=== PATIENT | male | born 1945 | race Caucasian/White ===

== ENCOUNTER 2016-09-25 09:58 | Emergency (ER) | payer OTHER ==
[~2016-09-25] VITALS: Ht 193 cm; Wt 97.0 kg
[~2016-09-25 09:58] MED LIST: ALLO300T2 PO; ASPI81TA82 PO; ATOR40TA49 PO; CYAN1000P IM; D31000CA PO; FLUT50SP EACH NARE; LORA-474 PO; MAGN250T13 PO; TAMS0.4C67 PO
[2016-09-25 10:01] VITALS: BP 110/59; PULSE 61; RESP 17; TEMP 97.9; O2SAT 96
[2016-09-25] MEDS ORDERED: MONT10TA4 PO (10:24)
[2016-09-25] MEDS ORDERED: ZOLP10TA3 PO (10:24)
[2016-09-25] MEDS ORDERED: TRAZ100T6 PO (10:24)
[2016-09-25] MEDS ORDERED: DULO1CAP2 PO (10:24)
[2016-09-25] MEDS ORDERED: ATOR40TA16 PO (10:24)
[2016-09-25] MEDS ORDERED: LORA1TAB12 PO (10:24)
[2016-09-25] MEDS ORDERED: SODIUM CHLORIDE 0.9% FLUSH 10 ML FLUSH IVF PRN (10:45)
[2016-09-25] MEDS ORDERED: DIATRIZOATE MEGLUM/DIATRIZOATE SOD 9 ML CUP ONE (10:55)
[2016-09-25 11:07] LABS: AUTOMATED NEUTROPHIL # 3.9 TH/MM3 (1.8-7.7); BASOPHIL % 0.2 % (0.0-2.0); EOSINOPHIL % 0.2 % (0.0-4.0); HEMATOCRIT 44.9 % (39.0-51.0); LYMPH % 7.4 % (9.0-44.0); LYMPHOCYTE # 0.4 TH/MM3 (1.0-4.8); MEAN CELL VOLUME 93.1 FL (80.0-100.0); MEAN CORPUSCULAR HEMOGLOBIN 30.8 PG (27.0-34.0); MEAN CORPUSCULAR HGB CONC 33.1 % (32.0-36.0); MONO % 11.8 % (0.0-8.0); NEUT % 80.4 % (16.0-70.0); PLATELET COUNT 205 TH/MM3 (150-450); RED BLOOD COUNT 4.83 MIL/MM3 (4.50-5.90); RED CELL DISTRIBUTION WIDTH 12.5 % (11.6-17.2); WHITE BLOOD COUNT 4.9 TH/MM3 (4.0-11.0)
[2016-09-25 11:09] LABS: HEMO FLAGS DIFF FINAL
[2016-09-25 11:12] VITALS: BP 117/67; PULSE 85; RESP 18; O2SAT 97
[2016-09-25 11:14] LABS: CHLORIDE 101 MEQ/L (98-107); SODIUM (NA) 137 MEQ/L (136-145)
[2016-09-25 11:17] VITALS: BP 117/67; PULSE 82; RESP 18; O2SAT 98
[2016-09-25 11:18] LABS: ANION GAP 9 MEQ/L (5-15); BICARBONATE 27.3 MEQ/L (21.0-32.0); BLOOD UREA NITROGEN 12 MG/DL (7-18)
[2016-09-25 11:20] LABS: BLOOD, URINE TRACE (NEG); GLUCOSE,URINE NEG (NEG); KETONE, URINE NEG (NEG); NITRITE,URINE NEG (NEG)
[2016-09-25 11:21] LABS: ALT (GPT) 24 U/L (12-78); AST (GOT) 13 U/L (15-37); GLOMERULAR FILTRATION RATE 84 ML/MIN (>89)
[2016-09-25 11:22] LABS: TOTAL BILIRUBIN ADULT 0.9 MG/DL (0.2-1.0)
[2016-09-25 11:23] LABS: ALKALINE PHOSPHATASE 53 U/L (45-117)
[2016-09-25 11:40] LABS: METHOD OF COLLECTION VOIDED; MUCUS URINE MANY /lpf (OCC); URINE COLOR YELLOW (YELLW/STRAW)
[2016-09-25 11:41] LABS: BACTERIA, URINE RARE /hpf; RBC, URINE 0-3 /hpf (0-3); SQUAMOUS EPITHELIAL CELL URINE 0-2 /hpf (0-5); WBC, URINE 0-2 /hpf (0-5)
[2016-09-25 11:42] LABS: COMMENT (UR) CULT NOT INDICATED; CULTURE IF INDICATED CULT NOT INDICATED
[2016-09-25 12:30] VITALS: BP 129/75; PULSE 76; RESP 18; O2SAT 99
[2016-09-25] MEDS ORDERED: IOHEXOL 350 MG/ML 10 ML VIAL (for RAD DIAG) IV ONE (12:37)
[2016-09-25 12:47] VITALS: BP 137/69; PULSE 70; RESP 18; O2SAT 99
--- NOTE | 2016-09-25 12:59 | RADHPO ---
EXAM DATE/TIME: 09/25/2016 12:25 [facility] COMPARISON: No previous studies available for comparison. INDICATIONS : Thirty pound weight loss within one month. IV CONTRAST: 95 cc Omnipaque 350 (iohexol) IV ORAL CONTRAST: Prescribed oral contrast ingested. RADIATION DOSE: 18.19 CTDIvol (mGy) MEDICAL HISTORY : None SURGICAL HISTORY : None. ENCOUNTER: Initial ACUITY: 1 month PAIN SCALE: 0/10 LOCATION: Abdomen/pelvis TECHNIQUE: Volumetric scanning of the abdomen and pelvis was performed. Using automated exposure control and ad justment of the mA and/or kV according to patient size, radiation dose was kept as low as reasonably achievable to obtain optimal diagnostic quality images. FINDINGS: Lung bases are clear. Liver is free of focal defects. Spleen contains granulomas. Pancreas, adrena ls and kidneys are unremarkable. There is no ascites or adenopathy appreciated. Pelvic contents are unremarkable. CONCLUSION: 1. I do not see an etiology for the 30-pound weight loss. 2. There is collateralization from a supreme intercostal vein to the azygous vein. Bud Araujo MD FACR on September 25, 2016 at 12:42 Board Certified Radiologist. This report was verified electronically.
--- NOTE | 2016-09-25 13:04 | PD ---
HPI Chief Complaint: General Weakness Time Seen by Provider: 10:46 Travel History International Travel<30 days: No Contact w/Intl Traveler<30days: No Traveled to known affect area: No History of Present Illness HPI Patient is a 71-year-old male with history of restless leg syndrome/neuropathy and depression here with complaint of generalized fatigue/malaise, anorexia and weight loss. For the last month patient has felt poorly. Notes generalized fatigue, anorexia. He's had an unintentional 30 pound weight loss. He also notes fullness/discomfort in the upper abdomen, right slightly greater than left. No noted jaundice, nausea, change in stool habits. He denies any history of hepatobiliary pathology. No changes in medications. No nocturnal sweats, fevers or chills PFSH Past Medical History Depression: Yes Cardiovascular Problems: Yes (IDIOPATHIC NEUROPATHY BILAT LEGS) Musculoskeletal: Yes (RLS) Influenza Vaccination: Yes Past Surgical History Surgical History: No Previous Surgery Social History Alcohol Use: No Tobacco Use: No Substance Use: No Allergies-Medications (Allergen,Severity, Reaction): Coded Allergies: Sulfa (Verified Allergy, Intermediate, vomiting, 09/25/16) Reported Meds & Prescriptions Reported Meds & Active Scripts Active Reported Duloxetine DR (Duloxetine HCl) 30 Mg Capdr 30 Mg PO BID Montelukast (Montelukast Sodium) 10 Mg Tab 10 Mg PO HS Atorvastatin (Atorvastatin Calcium) 40 Mg Tab 40 Mg PO HS Lorazepam 1 Mg Tab 1 Mg PO Q8H PRN Zolpidem (Zolpidem Tartrate) 10 Mg Tab 10 Mg PO HS Trazodone (Trazodone HCl) 100 Mg Tablet 100 Mg PO HS Review of Systems Except as stated in HPI: all other systems reviewed are Neg Physical Exam Narrative GENERAL: Well-appearing male in no acute distress SKIN: Focused skin assessment warm/dry. HEAD: Normocephalic. EYES: No scleral icterus. No injection or drainage. ENT: No nasal bleeding or discharge. Mucous membranes pink and moist. NECK: Supple CARDIOVASCULAR: Regular rate and rhythm. No murmur appreciated. RESPIRATORY: No accessory muscle use. Clear to auscultation. Breath sounds equal bilaterally. GASTROINTESTINAL: Abdomen soft, mild upper abdominal tenderness to palpation in the epigastrium and right upper quadrant without rebound or guarding, no hepatosplenomegaly MUSCULOSKELETAL: normal gait NEUROLOGICAL: Awake and alert. Motor grossly within normal limits. Normal speech. PSYCHIATRIC: Appropriate mood and affect; insight and judgment normal. Data Data Last Documented VS Vital Signs Date Time Temp Pulse Resp B/P Pulse Ox O2 Delivery O2 Flow Rate FiO2 09/25/16 12:47 70 18 137/69 99 Room Air 09/25/16 10:01 97.9 Orders Electrocardiogram (09/25/16 10:39) Complete Blood Count With Diff (09/25/16 10:39) Urinalysis - C+S If Indicated (09/25/16 10:39) Ecg Monitoring (09/25/16 10:39) Iv Access Insert/Monitor (09/25/16 10:39) Oximetry (09/25/16 10:39) Sodium Chloride 0.9% Flush (Ns Flush) (09/25/16 10:45) Comprehensive Metabolic Panel (09/25/16 10:52) Lipase (09/25/16 10:52) Ct Abd/Pel W Iv Contrast(Rout) (09/25/16 10:52) Diatrizoate Liq ( Gastroview Liq) (09/25/16 10:55) Oral Contrast - Adult (09/25/16 11:09) Iohexol 350 Inj (Omnipaque 350 Inj) (09/25/16 12:37) Labs Laboratory Tests Test 09/25/16 09/25/16 11:00 11:10 White Blood Count 4.9 TH/MM3 Red Blood Count 4.83 MIL/MM3 Hemoglobin 14.9 GM/DL Hematocrit 44.9 % Mean Corpuscular Volume 93.1 FL Mean Corpuscular Hemoglobin 30.8 PG Mean Corpuscular Hemoglobin 33.1 % Concent Red Cell Distribution Width 12.5 % Platelet Count 205 TH/MM3 Mean Platelet Volume 7.2 FL Neutrophils (%) (Auto) 80.4 % Lymphocytes (%) (Auto) 7.4 % Monocytes (%) (Auto) 11.8 % Eosinophils (%) (Auto) 0.2 % Basophils (%) (Auto) 0.2 % Neutrophils # (Auto) 3.9 TH/MM3 Lymphocytes # (Auto) 0.4 TH/MM3 Monocytes # (Auto) 0.6 TH/MM3 Eosinophils # (Auto) 0.0 TH/MM3 Basophils # (Auto) 0.0 TH/MM3 CBC Comment DIFF FINAL Differential Comment Sodium Level 137 MEQ/L Potassium Level 4.0 MEQ/L Chloride Level 101 MEQ/L Carbon Dioxide Level 27.3 MEQ/L Anion Gap 9 MEQ/L Blood Urea Nitrogen 12 MG/DL Creatinine 0.89 MG/DL Estimat Glomerular Filtration 84 ML/MIN Rate Random Glucose 131 MG/DL Calcium Level 9.3 MG/DL Total Bilirubin 0.9 MG/DL Aspartate Amino Transf 13 U/L (AST/SGOT) Alanine Aminotransferase 24 U/L (ALT/SGPT) Alkaline Phosphatase 53 U/L Total Protein 6.5 GM/DL Albumin 3.8 GM/DL Lipase 256 U/L Urine Collection Type VOIDED Urine Color YELLOW Urine Turbidity CLEAR Urine pH 6.0 Urine Specific [place] 1.024 Urine Protein NEG mg/dL Urine Glucose (UA) NEG mg/dL Urine Ketones NEG mg/dL Urine Occult Blood TRACE Urine Nitrite NEG Urine Bilirubin NEG Urine Leukocyte Esterase NEG Urine RBC 0-3 /hpf Urine WBC 0-2 /hpf Urine Squamous Epithelial 0-2 /hpf Cells Urine Bacteria RARE /hpf Urine Mucus MANY /lpf Microscopic Urinalysis Comment CULT NOT INDICATED MDM Medical Decision Making Medical Screen Exam Complete: Yes Emergency Medical Condition: Yes Medical Record Reviewed: Yes Differential Diagnosis 71-year-old male with history of depression here with 1 month of generalized fatigue/malaise, anorexia and unintentional 30 pound weight loss with upper abdominal discomfort. Differential includes gastritis, pancreatitis, hepatobiliary pathology, mass within the colon, pancreatitis, liver cancer, dehydration, electrolyte abnormality, symptomatic anemia, depression Narrative Course Patient placed on monitor, IV established and blood obtained. A twelve-lead EKG shows sinus rhythm without notable ST or T-wave abnormalities and normal intervals. CBC, CMP, lipase and urinalysis were unremarkable. CT of the abdomen and pelvis was normal. Patient reassured and encouraged to establish care with outpatient primary care provider for further workup and management of his symptoms. Diagnosis Primary Impression: Unintentional weight loss Additional Impression: Abdominal pain Qualified Code: R10.10 - Pain of upper abdomen Referrals: [facility] call for appointment Primary Care Physician call for appointment Additional Instructions: Laboratory workup and CT of the abdomen and pelvis today was normal. Follow-up with primary care provider for further outpatient workup Med/Other Pt SpecificInfo: No Change to Meds Disposition: 01 DISCHARGE HOME Condition: Stable Yanet Izaguirre MD Sep 25, 2016 13:04
--- NOTE | 2016-09-25 13:39 | EKG ---
Date Performed: 09/25/2016 Time Performed: 10:50:12 PTAGE: 71 years EKG: Sinus rhythm NORMAL ECG NO PREVIOUS TRACING DOCTOR: Jono Banda Interpretating Date/Time 09/25/2016 13:37:54
== END 2016-09-25 13:25 | disposition home or self-care (01) ==
LOC: EDBD → PHED 09:58
DX: R10.10 Upper abdominal pain, unspecified (principal); R63.4 Abnormal weight loss; G25.81 Restless legs syndrome; G62.9 Polyneuropathy, unspecified
CPT/HCPCS: 74177; 80053; 81001; 83690; 85025; 93005; 99285; Q9963; Q9967

== ENCOUNTER 2016-10-30 14:51 | Inpatient (IN) | payer OTHER ==
[2016-10-30] VITALS (8 sets, daily range): BP systolic 98–169; BP diastolic 55–94; PULSE 83–99; RESP 16–20; TEMP 97.8; O2SAT 95–99
[~2016-10-30] VITALS: Ht 193 cm; Wt 87.9 kg
[~2016-10-30 14:51] MED LIST changes: -ALLO300T2 PO; -ASPI81TA82 PO; +ATOR40TA16 PO; -ATOR40TA49 PO; -CYAN1000P IM; -D31000CA PO; +DULO1CAP2 PO; -FLUT50SP EACH NARE; -LORA-474 PO; +LORA1TAB12 PO; -MAGN250T13 PO; +MONT10TA4 PO; -TAMS0.4C67 PO; +TRAZ100T6 PO; +ZOLP10TA3 PO
[2016-10-30] MEDS ORDERED: SODIUM CHLORIDE 0.9% FLUSH 10 ML FLUSH IV FLUSH PRN (16:15)
[2016-10-30 16:48] LABS: AUTOMATED NEUTROPHIL # 4.9 TH/MM3 (1.8-7.7); BASOPHIL % 0.2 % (0.0-2.0); EOSINOPHIL % 0.1 % (0.0-4.0); LYMPH % 7.1 % (9.0-44.0); LYMPHOCYTE # 0.4 TH/MM3 (1.0-4.8); MEAN CORPUSCULAR HEMOGLOBIN 29.9 PG (27.0-34.0); MEAN CORPUSCULAR HGB CONC 32.5 % (32.0-36.0); MONO % 9.5 % (0.0-8.0); NEUT % 83.1 % (16.0-70.0); PLATELET COUNT 209 TH/MM3 (150-450); RED BLOOD COUNT 5.11 MIL/MM3 (4.50-5.90); RED CELL DISTRIBUTION WIDTH 12.9 % (11.6-17.2); WHITE BLOOD COUNT 5.9 TH/MM3 (4.0-11.0)
[2016-10-30 16:53] LABS: HEMO FLAGS AUTO DIFF
[2016-10-30 16:55] LABS: CHLORIDE 104 MEQ/L (98-107); POTASSIUM 4.1 MEQ/L (3.5-5.1); SODIUM (NA) 138 MEQ/L (136-145)
[2016-10-30 16:58] LABS: APTT (PATIENT) 24.6 SEC (24.3-30.1); PROTHROMBIN TIME - PATIENT 10.7 SEC (9.8-11.6)
[2016-10-30 16:59] LABS: ANION GAP 8 MEQ/L (5-15); BICARBONATE 26.1 MEQ/L (21.0-32.0); BLOOD UREA NITROGEN 19 MG/DL (7-18)
[2016-10-30 17:01] LABS: ALT (GPT) 93 U/L (12-78); AST (GOT) 37 U/L (15-37)
[2016-10-30 17:02] LABS: GLOMERULAR FILTRATION RATE 87 ML/MIN (>89)
[2016-10-30 17:03] LABS: TOTAL BILIRUBIN ADULT 1.2 MG/DL (0.2-1.0)
[2016-10-30 17:04] LABS: ALKALINE PHOSPHATASE 71 U/L (45-117)
[2016-10-30] MEDS ORDERED: IOHEXOL 350 MG/ML 10 ML VIAL (for RAD DIAG) IV ONE (17:32)
--- NOTE | 2016-10-30 17:37 | RADRPT ---
EXAM DATE/TIME: 10/30/2016 17:15 [facility] COMPARISON: No previous studies available for comparison. INDICATIONS : Weakness and difficulty ambulating. RADIATION DOSE: 62.11 CTDIvol (mGy) MEDICAL HISTORY : None. SURGICAL HISTORY : None. ENCOUNTER: Initial ACUITY: 2 months PAIN SCALE: 0/10 LOCATION: cranial TECHNIQUE: Multiple contiguous axial images were obtained of the head. Using automated exposure control and adj ustment of the mA and/or kV according to patient size, radiation dose was kept as low as reasonably a chievable to obtain optimal diagnostic quality images. DICOM format image data is available electro nically for review and comparison. FINDINGS: CEREBRUM: The ventricles are normal for age. No evidence of midline shift, mass lesion, hemorrhage or acute in farction. No extra-axial fluid collections are seen. POSTERIOR FOSSA: The cerebellum and brainstem are intact. The 4th ventricle is midline. The cerebellopontine angle i s unremarkable. EXTRACRANIAL: The visualized portion of the orbits is intact. SKULL: The calvaria is intact. No evidence of skull fracture. CONCLUSION: Normal examination. Tuan Rhodes MD on October 30, 2016 at 17:35 Board Certified Radiologist. This report was verified electronically.
[2016-10-30 17:41] LABS: SCAN/DIFF AUTO DIFF CONFIRMED
--- NOTE | 2016-10-30 17:42 | RADRPT ---
EXAM DATE/TIME: 10/30/2016 17:19 [facility] COMPARISON: No previous studies available for comparison. INDICATIONS : Increased weakness. Abdominal pain. IV CONTRAST: 95 cc Omnipaque 350 (iohexol) IV ORAL CONTRAST: No oral contrast ingested. RADIATION DOSE: 19.79 CTDIvol (mGy) MEDICAL HISTORY : None SURGICAL HISTORY : None. ENCOUNTER: Initial ACUITY: 2 months PAIN SCALE: 2/10 LOCATION: abdomen TECHNIQUE: Volumetric scanning of the abdomen and pelvis was performed. Using automated exposure control and ad justment of the mA and/or kV according to patient size, radiation dose was kept as low as reasonably achievable to obtain optimal diagnostic quality images. DICOM format image data is available electro nically for review and comparison. FINDINGS: LOWER LUNGS: The visualized lower lungs are clear. Epicardial pacer wires in good position LIVER: Homogeneous density without lesion. There is no dilation of the biliary tree. No calcified gallston es. SPLEEN: Normal size without lesion. Numerous granuloma PANCREAS: Within normal limits. KIDNEYS: Normal in size and shape. There is no mass, stone or hydronephrosis. ADRENAL GLANDS: Within normal limits. VASCULAR: There is no aortic aneurysm. BOWEL/MESENTERY: The stomach, small bowel, and colon demonstrate no acute abnormality. There is no free intraperitone al air or fluid. ABDOMINAL WALL: Within normal limits. RETROPERITONEUM: There is no lymphadenopathy. BLADDER: No wall thickening or mass. REPRODUCTIVE: Within normal limits. INGUINAL: There is no lymphadenopathy or hernia. MUSCULOSKELETAL: Within normal limits for patient age. CONCLUSION: Normal examination. Moderate stool throughout the colon. Tuan Rhodes MD on October 30, 2016 at 17:39 Board Certified Radiologist. This report was verified electronically.
[2016-10-30 18:09] LABS: BLOOD, URINE NEG (NEG); GLUCOSE,URINE NEG (NEG); KETONE, URINE TRACE mg/dL (NEG); NITRITE,URINE NEG (NEG)
--- NOTE | 2016-10-30 18:24 | PD ---
HPI Chief Complaint: General Weakness Time Seen by Provider: 16:02 Travel History International Travel<30 days: No Contact w/Intl Traveler<30days: No Traveled to known affect area: No History of Present Illness HPI 71-year-old male with history of restless leg syndrome, neuropathy, depression, here with complaint of generalized fatigue and malaise, anorexia, weight loss, generalized weakness. Patient was at the [facility] for last 2 months. His is here and states that he has had little appetite and has only been drinking Ensure. Patient is complaining of feeling abdominal fullness. He has not had fevers or chills. No vomiting. He reports that he has not had a bowel movement in several days. Chart review shows that the patient was seen in the emergency department about one month ago for the same. At that time his charted weight was 97 kg. Today is charted weight is 91 kilograms. Patient does admit to feeling depressed, however he denies suicidal or homicidal ideation. He states that he fell in the shower a couple weeks ago and shows me a bruise on his left arm. He states he feels too weak to walk around, and his is certainly not strong enough to take care of him at home. PFSH Past Medical History Anxiety: Yes Depression: Yes Cardiovascular Problems: Yes (IDIOPATHIC NEUROPATHY BILAT LEGS) High Cholesterol: Yes Diminished Hearing: No Musculoskeletal: Yes (RLS) Tetanus Vaccination: Unknown ?: Not Social History Alcohol Use: No Tobacco Use: No Substance Use: No Allergies-Medications (Allergen,Severity, Reaction): Coded Allergies: Sulfa (Verified Allergy, Intermediate, vomiting, 10/30/16) Reported Meds & Prescriptions Reported Meds & Active Scripts Active Reported Duloxetine DR (Duloxetine HCl) 30 Mg Capdr 30 Mg PO BID Atorvastatin (Atorvastatin Calcium) 40 Mg Tab 40 Mg PO HS Lorazepam 1 Mg Tab 1 Mg PO Q8H PRN Zolpidem (Zolpidem Tartrate) 10 Mg Tab 10 Mg PO HS Trazodone (Trazodone HCl) 100 Mg Tablet 100 Mg PO HS Review of Systems Except as stated in HPI: all other systems reviewed are Neg Physical Exam Narrative GENERAL: Well-developed, well-nourished, awake, alert, GCS 15 SKIN: Focused skin assessment warm/dry. Ecchymosis to medial left arm in various stages of healing. No lacerations or abrasions. HEAD: Atraumatic. Normocephalic. EYES: Pupils equal and round. No scleral icterus. No injection or drainage. ENT: Mucous membranes pink and moist. NECK: Trachea midline. No JVD. CARDIOVASCULAR: Regular rate and rhythm. RESPIRATORY: No accessory muscle use. Clear to auscultation. Breath sounds equal bilaterally. GASTROINTESTINAL: Abdomen soft, non-tender, nondistended. MUSCULOSKELETAL: No obvious deformities. No clubbing. No cyanosis. No edema. NEUROLOGICAL: Awake and alert. No obvious cranial nerve deficits. Motor grossly within normal limits. Normal speech. No focal deficits. PSYCHIATRIC: Appropriate mood and affect; insight and judgment normal. Data Data Last Documented VS Vital Signs Date Time Temp Pulse Resp B/P Pulse Ox O2 Delivery O2 Flow Rate FiO2 10/30/16 18:13 87 98/55 98 10/30/16 15:04 97.8 20 Orders Complete Blood Count With Diff (10/30/16 16:07) Comprehensive Metabolic Panel (10/30/16 16:07) Lipase (10/30/16 16:07) Prothrombin Time / Inr (Pt) (10/30/16 16:07) Act Partial Throm Time (Ptt) (10/30/16 16:07) Urinalysis - C+S If Indicated (10/30/16 16:07) Ct Abd/Pel W Iv Contrast(Rout) (10/30/16 16:07) Iv Access Insert/Monitor (10/30/16 16:07) Ecg Monitoring (10/30/16 16:07) Oximetry (10/30/16 16:07) Sodium Chloride 0.9% Flush (Ns Flush) (10/30/16 16:15) Electrocardiogram (10/30/16 16:07) Ct Brain W/O Iv Contrast(Rout) (10/30/16 ) Cath For Specimen (10/30/16 17:20) Iohexol 350 Inj (Omnipaque 350 Inj) (10/30/16 17:32) Labs Laboratory Tests Test 10/30/16 10/30/16 16:27 17:49 White Blood Count 5.9 TH/MM3 Red Blood Count 5.11 MIL/MM3 Hemoglobin 15.3 GM/DL Hematocrit 47.0 % Mean Corpuscular Volume 92.0 FL Mean Corpuscular Hemoglobin 29.9 PG Mean Corpuscular Hemoglobin 32.5 % Concent Red Cell Distribution Width 12.9 % Platelet Count 209 TH/MM3 Mean Platelet Volume 8.5 FL Neutrophils (%) (Auto) 83.1 % Lymphocytes (%) (Auto) 7.1 % Monocytes (%) (Auto) 9.5 % Eosinophils (%) (Auto) 0.1 % Basophils (%) (Auto) 0.2 % Neutrophils # (Auto) 4.9 TH/MM3 Lymphocytes # (Auto) 0.4 TH/MM3 Monocytes # (Auto) 0.6 TH/MM3 Eosinophils # (Auto) 0.0 TH/MM3 Basophils # (Auto) 0.0 TH/MM3 CBC Comment AUTO DIFF Differential Comment AUTO DIFF CONFIRMED Prothrombin Time 10.7 SEC Prothromb Time International 1.0 RATIO Ratio Activated Partial 24.6 SEC Thromboplast Time Sodium Level 138 MEQ/L Potassium Level 4.1 MEQ/L Chloride Level 104 MEQ/L Carbon Dioxide Level 26.1 MEQ/L Anion Gap 8 MEQ/L Blood Urea Nitrogen 19 MG/DL Creatinine 0.87 MG/DL Estimat Glomerular Filtration 87 ML/MIN Rate Random Glucose 92 MG/DL Calcium Level 9.4 MG/DL Total Bilirubin 1.2 MG/DL Aspartate Amino Transf 37 U/L (AST/SGOT) Alanine Aminotransferase 93 U/L (ALT/SGPT) Alkaline Phosphatase 71 U/L Total Protein 7.0 GM/DL Albumin 3.8 GM/DL Lipase 138 U/L Urine pH 6.0 Urine Protein NEG mg/dL Urine Glucose (UA) NEG mg/dL Urine Ketones TRACE mg/dL Urine Occult Blood NEG Urine Nitrite NEG Urine Bilirubin NEG Urine Leukocyte Esterase NEG [facility] Medical Decision Making Medical Screen Exam Complete: Yes Emergency Medical Condition: Yes Differential Diagnosis Failure to thrive, metabolic abnormality, cancer, depression, starvation, malnourished Narrative Course Vital signs reviewed. CBC shows WBC 5.9, hemoglobin 15.3, hematocrit 47, platelets 209, neutrophils 83 %. CMP is unremarkable. Lipase is 138. UA CT head: Normal exam. CT abdomen pelvis: Normal exam. Moderate stool throughout the colon. Patient was made aware of all findings. He is resting comfortably, however he states he feels too weak to even attempt to walk in the emergency department. There are no focal neuro deficits on exam. Patient was seen in the emergency department one month ago and at that time weight 97 kg. Today he weighs 91 kg. reports that he only drinks Ensure, and only does so when she forces him to. He is denying suicidal or homicidal ideation, however is admitting to feeling depressed. Patient is a fall risk. He is also failing to thrive. He will be admitted for further treatment and evaluation. Case discussed with Dr. Nye's nurse practitioner Kendy. Because Dr Nye is on vacation, she would like the patient to be admitted to the [facility] service. Case discussed with hospitalist Dr. Sykes will admit the patient to her service. Patient is also noted to be hypotensive with a blood pressure of 90s over 60s. He is awake and alert. This will also be addressed during his admission. Diagnosis Primary Impression: Hypotension Qualified Code: I95.9 - Hypotension, unspecified hypotension type Additional Impressions: Failure to thrive in adult Generalized weakness Frequent falls Depression Qualified Code: F32.9 - Depression, unspecified depression type Admitting Information Admitting Physician Requests: Admit Marty Krueger MD Oct 30, 2016 18:24
[2016-10-30] MEDS ORDERED: ZOLPIDEM TARTRATE 5 MG TAB PO PRN (18:45)
[2016-10-30] MEDS ORDERED: ACETAMINOPHEN 325 MG TAB PO PRN (18:45)
[2016-10-30] MEDS ORDERED: SODIUM CHLOR 0.9% 1000 ML INJ 1,000 ML IV ONE ×2 (18:45)
[2016-10-30 18:51] LABS: URINE COLOR AMBER (YELLW/STRAW)
[2016-10-30 18:52] LABS: MUCUS URINE MOD /lpf (OCC); RBC, URINE 0-3 /hpf (0-3); SQUAMOUS EPITHELIAL CELL URINE 0-5 /hpf (0-5); WBC, URINE 0-2 /hpf (0-5)
[2016-10-30 18:53] LABS: COMMENT (UR) CULT NOT INDICATED; CULTURE IF INDICATED CULT NOT INDICATED
--- NOTE | 2016-10-30 18:56 | HHI.HP ---
[facility] Service [place] [facility] Primary Care Physician Unknown Admission Diagnosis hypotension, failure to thrive, falls, depression Diagnoses: Chief Complaint: Weakness and abdominal pain Travel History International Travel<30 Days: No Contact w/Intl Traveler <30 Da: No Traveled to Known Affected Are: No History of Present Illness This patient is a 71-year-old gentleman with history of depression who has come to the hospital with 2 weeks of no bowel movements despite taking MiraLAX and suppositories at home. He has been generally weak due to not eating. He says his stomach feels full. His pain is moderate and not improved with any measures. His accompanies him and says he's lost at least 7 pounds in a week from not eating. He has been nauseated but not vomiting. Patient denies any fevers or chills. He says that he has been sleeping more and his is concerned that he is unmotivated and has not been out of the house in 20 days. Normally the patient takes trazodone, zolpidem and Eloxatin as well as lorazepam. His primary doctor for anxiety and depression. He has been sleeping poorly.. Patient denies any suicidal or homicidal ideation. The patient is severely dehydrated on exam with some tenting of his skin and dry mucous membranes. He is hypotensive. Patient will need to be admitted to the hospital for further evaluation of severe dehydration and malnourishment Review of Systems Constitutional: COMPLAINS OF: Weight loss (unintentional and due to not eating. Patient), DENIES: Diaphoretic episodes, Fatigue, Fever, Weight gain, Chills, Dizziness, Change in appetite, Night Sweats Endocrine: DENIES: Heat/cold intolerance, Polydipsia, Polyuria, Polyphagia Eyes: DENIES: Blurred vision, Diplopia, Eye inflammation, Eye pain, Vision loss , Photosensitivity, Double Vision Ears, nose, mouth, throat: DENIES: Tinnitus, Hearing loss, Vertigo, Nasal discharge, Oral lesions, Throat pain, Hoarseness, Ear Pain, Running Nose, Epistaxis, Sinus Pain, Toothache, Odynophagia Respiratory: DENIES: Apneas, Cough, Snoring, Wheezing, Hemoptysis, Sputum production, Shortness of breath Cardiovascular: DENIES: Chest pain, Palpitations, Syncope, Dyspnea on Exertion , PND, Lower Extremity Edema, Orthopnea, Claudication Gastrointestinal: COMPLAINS OF: Abdominal pain, Constipation, Nausea Genitourinary: DENIES: Sexual dysfunction, Urinary frequency, Urinary incontinence, Urgency, Hematuria, Dysuria, Nocturia, Penile Discharge, Testicular Pain, Testicular Swelling Musculoskeletal: DENIES: Joint pain, Muscle aches, Stiffness, Joint Swelling, Back pain, Neck pain Integumentary: DENIES: Abnormal pigmentation, Nail changes, Pruritus, Rash Hematologic/lymphatic: DENIES: Bruising, Lymphadenopathy Immunologic/allergic: DENIES: Eczema, Urticaria Neurologic: DENIES: Abnormal gait, Headache, Localized weakness, Paresthesias, Seizures, Speech Problems, Tremor, Poor Balance Psychiatric: COMPLAINS OF: Anxiety, Depression (patient denies suicidal or homicidal ideation), DENIES: Confusion, Mood changes, Hallucinations, Agitation , Suicidal Ideation, Homicidal Ideation, Delusions Past Family Social History Past Medical History Depression Hyperlipidemia Neuropathy history of melanoma Past Surgical History Anxiety Reported Medications Reviewed in the medical record, patient does not take his statin Allergies: Coded Allergies: Sulfa (Verified Allergy, Intermediate, vomiting, 10/30/16) Active Ordered Medications Reviewed in the medical record Family History Mother at 92 and Alzheimer's, father at 92 Social History , no tobacco or alcohol dependency Physical Exam Vital Signs Vital Signs Date Time Temp Pulse Resp B/P Pulse Ox O2 Delivery O2 Flow Rate FiO2 10/30/16 18:13 87 98/55 98 10/30/16 17:18 84 114/66 97 10/30/16 16:10 96 10/30/16 15:04 97.8 99 20 99/67 95 Physical Exam GENERAL: This is a well-nourished, well-developed patient, with flat affect SKIN: Skin is cool and dry and there is multiple areas of hypopigmentation was a patient says his vitiligo HEAD: Atraumatic. Normocephalic. No temporal or scalp tenderness. EYES: Pupils equal round and reactive. Extraocular motions intact. No scleral icterus. No injection or drainage. ENT: Nose without bleeding, purulent drainage or septal hematoma. Throat without erythema, tonsillar hypertrophy or exudate. Uvula midline. Airway patent. NECK: Trachea midline. No JVD or lymphadenopathy. Supple, nontender, no meningeal signs. CARDIOVASCULAR: Regular rate and rhythm without murmurs, gallops, or rubs. RESPIRATORY: Clear to auscultation. Breath sounds equal bilaterally. No wheezes , rales, or rhonchi. GASTROINTESTINAL: Abdomen soft, non-tender, mildly distended hypoactive bowel sounds. No hepato-splenomegaly, or palpable masses. No guarding. MUSCULOSKELETAL: Extremities without clubbing, cyanosis, or edema. No joint tenderness, effusion, or edema noted. No calf tenderness. Negative Homans sign bilaterally. NEUROLOGICAL: Awake and alert. Cranial nerves II through XII intact. Motor and sensory grossly within normal limits. Five out of 5 muscle strength in all muscle groups. Normal speech. Laboratory Laboratory Tests Test 10/30/16 10/30/16 16:27 17:49 White Blood Count 5.9 Red Blood Count 5.11 Hemoglobin 15.3 Hematocrit 47.0 Mean Corpuscular Volume 92.0 Mean Corpuscular Hemoglobin 29.9 Mean Corpuscular Hemoglobin 32.5 Concent Red Cell Distribution Width 12.9 Platelet Count 209 Mean Platelet Volume 8.5 Neutrophils (%) (Auto) 83.1 Lymphocytes (%) (Auto) 7.1 Monocytes (%) (Auto) 9.5 Eosinophils (%) (Auto) 0.1 Basophils (%) (Auto) 0.2 Neutrophils # (Auto) 4.9 Lymphocytes # (Auto) 0.4 Monocytes # (Auto) 0.6 Eosinophils # (Auto) 0.0 Basophils # (Auto) 0.0 CBC Comment AUTO DIFF Differential Comment AUTO DIFF CONFIRMED Prothrombin Time 10.7 Prothromb Time International 1.0 Ratio Activated Partial 24.6 Thromboplast Time Sodium Level 138 Potassium Level 4.1 Chloride Level 104 Carbon Dioxide Level 26.1 Anion Gap 8 Blood Urea Nitrogen 19 Creatinine 0.87 Estimat Glomerular Filtration 87 Rate Random Glucose 92 Calcium Level 9.4 Total Bilirubin 1.2 Aspartate Amino Transf 37 (AST/SGOT) Alanine Aminotransferase 93 (ALT/SGPT) Alkaline Phosphatase 71 Total Protein 7.0 Albumin 3.8 Lipase 138 Urine pH 6.0 Urine Protein NEG Urine Glucose (UA) NEG Urine Ketones TRACE Urine Occult Blood NEG Urine Nitrite NEG Urine Bilirubin NEG Urine Leukocyte Esterase NEG Result Diagram: 7/17/17 1627 7/17/17 1627 Imaging Last Impressions Abdomen/Pelvis CT 10/30/16 1607 Signed Impressions: Service Date/Time: Sunday, October 30, 2016 17:19 - CONCLUSION: Normal examination. Moderate stool throughout the colon. Tuan Rhodes MD Head CT 10/30/16 0000 Signed Impressions: Service Date/Time: Sunday, October 30, 2016 17:15 - CONCLUSION: Normal examination. Tuan Rhodes MD Assessment and Plan Problem List: (1) Hypotension ICD Code: I95.9 Status: Acute Plan: Patient is severely dehydrated clinically and will need IV hydration. He appears to be malnourished and we will consult nutrition (2) Depression ICD Code: F32.9 Status: Acute Plan: Patient on Cymbalta and multiple benzos/sleep aides Patient with increased anhedonia, appetite and flat affect on exam Psychiatry consult pending tsh pending (3) Abdominal pain ICD Code: R10.9 Status: Acute Plan: Likely due to constipation which may be medication related. Continue with bowel regimen and stool softeners (4) Obstipation ICD Code: K59.00 Status: Acute Plan: Patient with significant decrease in bowel movements for 2 weeks and stool in his colon. We will attempt medical management of this for now and follow for resolution Assessment and Plan Plan of care to be determined by Hospital course Code Status full code Discussed Condition With Patient, spouse, nursing team and ER M.D. Physician Certification 2 Midnight Certification Type: Admission for Inpatient Services Order for Inpatient Services The services are ordered in accordance with Medicare regulations or non- Medicare payer requirements, as applicable. In the case of services not specified as inpatient-only, they are appropriately provided as inpatient services in accordance with the 2-midnight benchmark. Estimated LOS (days): 2 2 days is the estimated time the patient will need to remain in the hospital, assuming treatment plan goals are met and no additional complications. Post-Hospital Plan: Not yet determined Problem Qualifiers (1) Hypotension: Qualified Code: I95.9 - Hypotension, unspecified hypotension type (2) Depression: Qualified Code: F32.9 - Depression, unspecified depression type Maureen Sykes MD Oct 30, 2016 18:56
[2016-10-30] MEDS: SODIUM CHLOR 0.9% 1000 ML INJ 1,000 ML IV SCH (20:57)
[2016-10-30] MEDS ORDERED: traZODone HCL 100 MG TAB PO SCH (21:00)
[2016-10-30] MEDS: DULoxetine HCl DR 30 MG CAP PO SCH (22:42)
[2016-10-30] MEDS: LACTOBACILLUS ACIDOPHILUS TAB PO SCH (22:42)
[2016-10-30] MEDS: DOCUSATE SODIUM 100 MG CAP PO SCH (22:42)
[2016-10-30] MEDS: LACTULOSE SYRUP 20 GM/30 ML CUP PO SCH (22:42)
[2016-10-31] VITALS: BP 147/65; PULSE 76; RESP 15; TEMP 97.9; O2SAT 100
[2016-10-31 04:00] VITALS: BP 147/73; PULSE 92; RESP 15; TEMP 98; O2SAT 100
[2016-10-31 05:00] LABS: AUTOMATED NEUTROPHIL # 4.8 TH/MM3 (1.8-7.7); BASOPHIL % 0.3 % (0.0-2.0); EOSINOPHIL % 0.5 % (0.0-4.0); HEMATOCRIT 42.4 % (39.0-51.0); HEMO FLAGS DIFF FINAL; LYMPH % 8.2 % (9.0-44.0); LYMPHOCYTE # 0.5 TH/MM3 (1.0-4.8); MEAN CELL VOLUME 92.4 FL (80.0-100.0); MEAN CORPUSCULAR HEMOGLOBIN 30.8 PG (27.0-34.0); MEAN CORPUSCULAR HGB CONC 33.3 % (32.0-36.0); PLATELET COUNT 172 TH/MM3 (150-450); RED BLOOD COUNT 4.59 MIL/MM3 (4.50-5.90); RED CELL DISTRIBUTION WIDTH 12.9 % (11.6-17.2); WHITE BLOOD COUNT 5.9 TH/MM3 (4.0-11.0)
[2016-10-31 05:58] LABS: POTASSIUM 3.8 MEQ/L (3.5-5.1)
[2016-10-31 06:02] LABS: BICARBONATE 30.8 MEQ/L (21.0-32.0)
[2016-10-31] MEDS: SODIUM CHLOR 0.9% 1000 ML INJ 1,000 ML IV SCH (06:26)
[2016-10-31] MEDS: DULoxetine HCl DR 30 MG CAP PO SCH (07:57)
[2016-10-31] MEDS: DOCUSATE SODIUM 100 MG CAP PO SCH (07:57)
[2016-10-31] MEDS: LACTULOSE SYRUP 20 GM/30 ML CUP PO SCH (07:57)
[2016-10-31] MEDS: LACTOBACILLUS ACIDOPHILUS TAB PO SCH (07:57)
[2016-10-31 08:00] VITALS: BP 133/67; PULSE 88; RESP 14; TEMP 97.6; O2SAT 97
--- NOTE | 2016-10-31 11:26 | PD.PSY.CON ---
Provisional Diagnosis Admission Date Oct 30, 2016 at 18:36 [place] I. Major depressive disorder, recurrent, moderate, without psychosis [place] II. Deferred [place] III. Restless leg syndrome, peripheral neuropathy [place] IV. Isolation, medical stressors [place] V. 55 History of Present Illness Service Psychiatry Consult Requested By Primary Care Physician Unknown HPI The patient is a 71-year-old man, domicile with his in [place], retired, with psychiatric history of depression, insomnia, no previous psychiatric hospitalizations, no previous suicidal attempts, he is on Cymbalta 30 mg, Ambien 5 mg, Trazodone 100 mg prescribed by PCP, with [place] and medical history of restless leg syndrome, peripheral neuropathy, as per H&P note who has come to the hospital with 2 weeks of no bowel movements despite taking MiraLAX and suppositories at home. He has been generally weak due to not eating. He says his stomach feels full. His pain is moderate and not improved with any measures. His accompanies him and says he's lost at least 7 pounds in a week from not eating. He has been nauseated but not vomiting. Patient denies any fevers or chills. He says that he has been sleeping more and his is concerned that he is unmotivated and has not been out of the house in 20 days. On psychiatric evaluation today patient is found calm, superficially cooperative, distant. With flat affect, sometimes irritable. Patient said that he has been feeling depressed in the last months, he points at stressors his underlying medical conditions "pain in my legs or the time, and inability to keep my legs quite". He also reports "some problems with my and isolation from a friend and the society". For this reason patient has been feeling down, sad, depressed, with decreased energy, insomnia, very poor appetite, weight loss, and poor consideration capacity. Patient has been no enjoying life, no interacting with his friend in the way he used to mostly at home doing nothing. Patient reports no suicidal ideation, he actually is future oriented and can identified several protective factors his life, such as the love his , his daughter, and jew and ethical values. He reports taking his psychotropics, Cymbalta, Ambien and trazodone, he also reports taking lorazepam 2 mg at bedtime for restless leg syndrome. Patient denies anhedonia, he denies hopelessness, he denies helplessness, he denies worthlessness. Patient also denies anxiety, he says that his mostly in peace, but with some intrusive thoughts. Patient is oriented 3, without any attention deficit, no fluctuation of consciousness, no gross cognitive impairment present. Patient denies the use of alcohol and illicit drugs. Review of Systems Constitutional: COMPLAINS OF: Fatigue, Weight loss, Change in appetite, DENIES : Diaphoretic episodes, Fever, Weight gain, Chills, Dizziness, Night Sweats Endocrine: DENIES: Heat/cold intolerance, Polydipsia, Polyuria, Polyphagia Eyes: DENIES: Blurred vision, Diplopia, Eye inflammation, Eye pain, Vision loss , Photosensitivity, Double Vision Ears, nose, mouth, throat: DENIES: Tinnitus, Hearing loss, Vertigo, Nasal discharge, Oral lesions, Throat pain, Hoarseness, Ear Pain, Running Nose, Epistaxis, Sinus Pain, Toothache, Odynophagia Respiratory: DENIES: Apneas, Cough, Snoring, Wheezing, Hemoptysis, Sputum production, Shortness of breath Cardiovascular: DENIES: Chest pain, Palpitations, Syncope, Dyspnea on Exertion , PND, Lower Extremity Edema, Orthopnea, Claudication Gastrointestinal: DENIES: Abdominal pain, Black stools, Bloody stools, Constipation, Diarrhea, Nausea, Vomiting, Difficulty Swallowing, Anorexia Musculoskeletal: COMPLAINS OF: Joint pain, DENIES: Muscle aches, Stiffness, Joint Swelling, Back pain, Neck pain Integumentary: DENIES: Abnormal pigmentation, Nail changes, Pruritus, Rash Hematologic/lymphatic: DENIES: Bruising, Lymphadenopathy Immunologic/allergic: DENIES: Eczema, Urticaria Neurologic: DENIES: Abnormal gait, Headache, Localized weakness, Paresthesias, Seizures, Speech Problems, Tremor, Poor Balance Psychiatric: COMPLAINS OF: Anxiety, Depression, DENIES: Confusion, Mood changes, Hallucinations, Agitation, Suicidal Ideation, Homicidal Ideation, Delusions Other Patient reports lower leg pains. Past Family Social History Coded Allergies: Sulfa (Verified Allergy, Intermediate, vomiting, 10/30/16) Reported Medications Duloxetine DR 30 Mg Capdr30 Mg PO BID #30 CAP Ref 0 09/25/16 Atorvastatin 40 Mg Tab40 Mg PO HS #30 TAB Ref 0 09/25/16 Lorazepam 1 Mg Tab1 Mg PO Q8H PRN (ANXIETY) Ref 0 09/25/16 Zolpidem 10 Mg Tab10 Mg PO HS Ref 0 09/25/16 Trazodone 100 Mg [id number] Mg PO HS #30 TAB Ref 0 09/25/16 Discontinued Reported Medications Montelukast 10 Mg Tab10 Mg PO HS #30 TAB Ref 0 09/25/16 Current Medications Medications (Trade) Dose Ordered Sig/Giorgi Route Start Time Stop Time Status Last Admin Sodium Chloride 2 ml 2 ml UNSCH PRN IV FLUSH 10/30/16 16:15 (NS 1000 ml Inj) 1,000 ml @ 100 mls/hr Q10H IV 10/30/16 18:41 10/31/16 06:26 (Tylenol) 650 mg Q4H PRN PO 10/30/16 18:45 (Ambien) 5 mg HS PRN PO 10/30/16 18:45 (Lactulose Liq) 30 ml BID PO 10/30/16 21:00 10/31/16 07:57 (Lactinex) 1 tab Q12HR PO 10/30/16 21:00 10/31/16 07:57 (Colace) 100 mg BID PO 10/30/16 21:00 10/31/16 07:57 (Cymbalta Dr) 30 mg BID PO 10/30/16 21:00 10/31/16 07:57 (Desyrel) 100 mg HS PO 10/30/16 21:00 10/30/16 22:42 Family History Patient denies family psychiatric history Social History Patient was born and raised in [place], he lives in [place] since 2007 with his , he also lives with his daughter, 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 2) Family support, high level of education Physical Exam On physical exam the patient does not present any EPS, withdrawal symptoms, tremors, extremity weakness, but he does percent son hypoactivity and psychomotor retardation. Vital Signs Vital Signs Date Time Temp Pulse Resp B/P Pulse Ox O2 Delivery O2 Flow Rate FiO2 10/31/16 04:00 98.0 92 15 147/73 100 10/30/16 21:36 Room Air I/O 10/30/16 10/30/16 10/30/16 07:59 15:59 23:59 Intake Total 2100 ml Output Total 100 ml Balance 2000 ml Lab Results Laboratory Tests Test 10/30/16 10/30/16 16:27 17:49 White Blood Count 5.9 Red Blood Count 5.11 Hemoglobin 15.3 Hematocrit 47.0 Mean Corpuscular Volume 92.0 Mean Corpuscular Hemoglobin 29.9 Mean Corpuscular Hemoglobin 32.5 Concent Red Cell Distribution Width 12.9 Platelet Count 209 Mean Platelet Volume 8.5 Neutrophils (%) (Auto) 83.1 Lymphocytes (%) (Auto) 7.1 Monocytes (%) (Auto) 9.5 Eosinophils (%) (Auto) 0.1 Basophils (%) (Auto) 0.2 Neutrophils # (Auto) 4.9 Lymphocytes # (Auto) 0.4 Monocytes # (Auto) 0.6 Eosinophils # (Auto) 0.0 Basophils # (Auto) 0.0 CBC Comment AUTO DIFF Differential Comment AUTO DIFF CONFIRMED Prothrombin Time 10.7 Prothromb Time International 1.0 Ratio Activated Partial 24.6 Thromboplast Time Sodium Level 138 Potassium Level 4.1 Chloride Level 104 Carbon Dioxide Level 26.1 Anion Gap 8 Blood Urea Nitrogen 19 Creatinine 0.87 Estimat Glomerular Filtration 87 Rate Random Glucose 92 Calcium Level 9.4 Total Bilirubin 1.2 Aspartate Amino Transf 37 (AST/SGOT) Alanine Aminotransferase 93 (ALT/SGPT) Alkaline Phosphatase 71 Total Protein 7.0 Albumin 3.8 Lipase 138 Urine pH 6.0 Urine Protein NEG Urine Glucose (UA) NEG Urine Ketones TRACE Urine Occult Blood NEG Urine Nitrite NEG Urine Bilirubin NEG Urine Leukocyte Esterase NEG Result Diagram: 10/30/16 1627 10/30/16 1627 Mental Status Examination Appearance elderly man, who appears younger than his stated age, good muscular shape, good hygiene, [facility], calm, superficially cooperative, distant Speech: Hesitant, Slow Orientation: x3 Memory: Unremarkable Thought Process: Logical, Goal Directed, Linear Thought Content: Unremarkable Language Fluent and spontaneous Fund of Knowledge Adequate for his level of education Hallucination Type: Auditory Attention and Concentration: Good Suicidal Ideation: No Previous Suicide Attempts: No Homicidal Ideation: No Previous Homicide Attempts: No Judgment: WNL Affect: Other (restricted) Affect if Inappropriate: Blunt Mood: Sad Motor Activity: Normal gait Assessment & Plan Problem List: (1) Major depressive disorder, recurrent, moderate Assessment & Plan: The patient is a 71-year-old man, domicile with his in [place], retired, with psychiatric history of depression, insomnia, no previous psychiatric hospitalizations, no previous suicidal attempts, he is on Cymbalta 30 mg, Ambien 5 mg, Trazodone 100 mg prescribed by PCP, with significant medical history of restless leg syndrome, peripheral neuropathy, admitted due to hypotension and failure to thrive, consulted to psychiatry due to depression. On psychiatric evaluation today the patient presents distant, visibly depressed, he reports moderate to severe neurovegetative symptoms of depression, such as insomnia, low appetite, weight loss, low level of energy. He denies suicidal or homicidal ideation, he denies visual and auditory hallucinations. She is oriented 3, not attention deficit, no gross cognitive impairment present. Current presentation seems to be related with ongoing major depressive disorder, he has been treated in outpatient by PCP. We will increase Cymbalta to 60 mg to help with depression, will increase Ambien to 10 mg to help with insomnia. Continue trazodone 100 mg. For restless leg syndrome with recommend a dopaminergic medication, rather than a benzodiazepine. Can use pramipexole 0.125 or Ropinirole 0.25 once daily. Patient might benefit of a voluntary psychiatric admission to treat his depression, but he is not Murphy actable. But, he can also choose to continue his psychiatric treatment as an outpatient. Extensive supportive psychotherapy and psychoeducation provided. Consult appreciated. ICD Code: F33.1 Assessment & Plan Estimated LOS: Gilles Phillips MD Oct 31, 2016 11:26
[2016-10-31] MEDS ORDERED: ZOLPIDEM TARTRATE 10 MG TAB PO PRN (11:45)
[2016-10-31] MEDS ORDERED: SOD PHOSPHATE/SOD BIPHOSPHATE (ADULT) ENEMA 133ML RECTAL ONE (12:00)
--- NOTE | 2016-10-31 12:25 | HHI.DCPOC ---
Discharge Care Plan Diagnosis: (1) Obstipation (2) Major depressive disorder, recurrent, moderate Goals to Promote Your Health * To prevent worsening of your condition and complications * To maintain your health at the optimal level Directions to Meet Your Goals Take your medications as prescribed Follow your dietary instruction Follow activity as directed Keep your appointments as scheduled Take your immunizations and boosters as scheduled If your symptoms worsen call your PCP, if no PCP go to Urgent Care Center or Emergency Room Smoking is Dangerous to Your Health. Avoid second hand smoke Call the 24-hour hour crisis hotline for domestic abuse at Maureen Sykes MD Oct 31, 2016 12:25
[2016-10-31] MEDS ORDERED: DULO1CAP2 PO (12:28)
[2016-10-31] MEDS ORDERED: PRAM0.12 PO (12:28)
[2016-10-31] MEDS ORDERED: LACT PO (12:29)
[2016-10-31] MEDS ORDERED: DOCU1CAP39 PO (12:29)
[2016-10-31] MEDS ORDERED: Lactulose Liq PO (12:29)
[2016-10-31 12:30] VITALS: BP 104/59; PULSE 104; RESP 17; TEMP 97.9; O2SAT 97
--- NOTE | 2016-10-31 12:37 | HHI.DS ---
cc: Anusha Meredith MD Discharge Summary Admission Date Oct 30, 2016 at 18:36 Discharge Date: Oct 31, 2016 Admitting Diagnosis hypotension, failure to thrive, falls, depression (1) Hypotension ICD Code: I95.9 (2) Depression ICD Code: F32.9 (3) Abdominal pain ICD Code: R10.9 (4) Obstipation ICD Code: K59.00 Procedures none Brief History - From Admission This patient is a 71-year-old gentleman with history of depression who has come to the hospital with 2 weeks of no bowel movements despite taking MiraLAX and suppositories at home. He has been generally weak due to not eating. He says his stomach feels full. His pain is moderate and not improved with any measures. His accompanies him and says he's lost at least 7 pounds in a week from not eating. He has been nauseated but not vomiting. Patient denies any fevers or chills. He says that he has been sleeping more and his is concerned that he is unmotivated and has not been out of the house in 20 days. Normally the patient takes trazodone, zolpidem and Eloxatin as well as lorazepam. His primary doctor for anxiety and depression. He has been sleeping poorly.. Patient denies any suicidal or homicidal ideation. The patient is severely dehydrated on exam with some tenting of his skin and dry mucous membranes. He is hypotensive. Patient will need to be admitted to the hospital for further evaluation of severe dehydration and malnourishment CBC/BMP: 10/31/16 0435 10/31/16 0435 Significant Findings Laboratory Tests Test 10/30/16 10/30/16 10/31/16 16:27 17:49 04:35 Neutrophils (%) (Auto) 83.1 % 81.0 % (16.0-70.0) (16.0-70.0) Lymphocytes (%) (Auto) 7.1 % 8.2 % (9.0-44.0) (9.0-44.0) Monocytes (%) (Auto) 9.5 % (0.0-8.0) 10.0 % (0.0-8.0) Lymphocytes # (Auto) 0.4 TH/MM3 0.5 TH/MM3 (1.0-4.8) (1.0-4.8) Blood Urea Nitrogen 19 MG/DL (7-18) Estimat Glomerular Filtration 87 ML/MIN (>89) Rate Total Bilirubin 1.2 MG/DL (0.2-1.0) Alanine Aminotransferase 93 U/L (12-78) (ALT/SGPT) Urine Color SARAH BETH (YELLW/STRAW) Urine Ketones TRACE mg/dL (NEG) Urine Mucus MOD /lpf (OCC) Urine Sperm OCC (NONE) Imaging Last Impressions Abdomen/Pelvis CT 10/30/16 1607 Signed Impressions: Service Date/Time: Sunday, October 30, 2016 17:19 - CONCLUSION: Normal examination. Moderate stool throughout the colon. Tuan Rhodes MD Head CT 10/30/16 0000 Signed Impressions: Service Date/Time: Sunday, October 30, 2016 17:15 - CONCLUSION: Normal examination. Tuan Rhodes MD PE at Discharge GENERAL: This is a well-nourished, well-developed patient, flat affect CARDIOVASCULAR: Regular rate and rhythm without murmurs, gallops, or rubs. RESPIRATORY: Clear to auscultation. Breath sounds equal bilaterally. No wheezes , rales, or rhonchi. GASTROINTESTINAL: Abdomen soft, non-tender, nondistended. hypo active bowel sounds MUSCULOSKELETAL: Extremities without clubbing, cyanosis, or edema. NEURO: Alert & Oriented x4 to person, place, time, situation. Moves all ext x4 Pt update on day of discharge Seen today in follow-up for depression and constipation. Patient passing gas and abdominal discomfort is improved. Patient more hydrated after IV hydration. Patient with out further complaints. He is seen by psychiatry and recommended for voluntary evaluation for which the patient refused Hospital Course This patient is 71-year-old gentleman was obstipation/constipation and with depression. Patient required IV hydration and was monitored for improvement. Patient also required aggressive oral regimen for bowel improvement. He was seen by psychiatrist for his major depressive disorder. Patient was recommended for adjustment in medications and continued psychiatric care on a voluntary basis. Pt Condition on Discharge: Good Discharge Disposition: Discharge Home Discharge Time: > 30 minutes Discharge Instructions DIET: Follow Instructions for: As Tolerated, No Restrictions Activities you can perform: Regular-No Restrictions Follow up Referrals: PCP Follow-up - 1 Week Psychiatry Adult - 1 Week New Medications: Pramipexole (Pramipexole) 0.125 Mg Tab 0.125 MG PO DAILY Parkinson Disease Mgmt #30 Ref 0 TAB Docusate Sodium (Dok) 100 Mg Cap 100 MG PO BID Constipation #[address] (Duloxetine DR) 30 Mg Capdr 60 MG PO BID Depression Control #62 CAP Lactobacillus Acidophilus (Acidophilus/l-Sporogenes) 1 Tab Tab 1 TAB PO Q12HR Constipation #62 TAB ([Lactulose Liq]) 30 ML SYRP 30 ML PO BID Constipation #62 ML Continued Medications: Atorvastatin (Atorvastatin) 40 Mg Tab 40 MG PO HS Cholesterol Management #30 Ref 0 TAB Lorazepam (Lorazepam) 1 Mg Tab 1 MG PO Q8H PRN ANXIETY Ref 0 TAB Trazodone (Trazodone) 100 Mg Tablet 100 MG PO HS Control Depression #30 Ref 0 TAB Zolpidem (Zolpidem) 10 Mg Tab 10 MG PO HS INSOMNIA Ref 0 TAB Discontinued Medications: Duloxetine DR (Duloxetine DR) 30 Mg Capdr 30 MG PO BID #30 Ref 0 CAP Maureen Sykes MD Oct 31, 2016 12:37
--- NOTE | 2016-10-31 12:40 | HHI.FF ---
Face to Face Verification Diagnosis: (1) Frequent falls (2) Failure to thrive in adult Physical Therapy Order: Evaluate and Treat, Improve ambulation Instructions: 5 days a week Home Health Aide Order: To Assist In: Bathing and personal care Block Piler Order: To Evaluate: Living conditions/environment, Support services I have seen patient Gerard Godinez on 10/31/16. My clinical findings support the need for the requested home health care services because: Med compliance is questionable I certify that my clinical findings support that this patient is homebound because: Unsteady gait/balance Maureen Sykes MD Oct 31, 2016 12:40
--- NOTE | 2016-10-31 14:04 | RADRPT ---
EXAM DATE/TIME: 10/31/2016 13:54 [facility] COMPARISON: No previous studies available for comparison. INDICATIONS : Constipation. MEDICAL HISTORY : None. SURGICAL HISTORY : None. ENCOUNTER: Subsequent ACUITY: 2 weeks PAIN SCORE: 2/10 LOCATION: Abdomen, all quadrants. FINDINGS: Supine view of the abdomen was performed. The abdominal bowel gas pattern is normal. No abnormal ma sses, calcifications, or organomegaly is seen. The osseous structures are unremarkable. CONCLUSION: Normal examination. Moderate stool throughout the colon. Tuan Rhodes MD on October 31, 2016 at 14:01 Board Certified Radiologist. This report was verified electronically.
[2016-10-31 16:00] VITALS: PULSE 106; RESP 22; TEMP 98; O2SAT 99
--- NOTE | 2016-10-31 19:02 | EKG ---
Date Performed: 10/30/2016 Time Performed: 16:17:42 PTAGE: 71 years EKG: Sinus rhythm WITH FREQUENT VENTRICULAR PREMATURE COMPLEXES ABNORMAL RHYTHM ECG PREVIOUS TRACING : 09/25/2016 10.50 Compared to the previous tracing, PVCs are now noted DOCTOR: Adam Zavala Interpretating Date/Time 10/31/2016 19:00:46
[2016-10-31] MEDS ORDERED: DULoxetine HCl DR 30 MG CAP PO SCH (21:00)
== END 2016-10-31 16:50 | disposition home or self-care (01) | DRG 641 ==
LOC: PHED 14:51 → PHEDA 18:36 → PHICU 22:02
PROVIDERS: ADMIT Hospitalist; ATTEND Hospitalist
DX: E86.0 Dehydration (principal); I95.9 Hypotension, unspecified; E46 Unspecified protein-calorie malnutrition; F33.1 Major depressive disorder, recurrent, moderate; R10.9 Unspecified abdominal pain; K59.00 Constipation, unspecified; G25.81 Restless legs syndrome; G60.9 Hereditary and idiopathic neuropathy, unspecified; Z68.23 Body mass index [BMI] 23.0-23.9, adult; R62.7 Adult failure to thrive; R29.6 Repeated falls
CPT/HCPCS: 70450; 74000; 74177; 80048; 80053; 81001; 83690; 84443; 85025; 85610; 85730; 93005; J7030; Q9967

== ENCOUNTER 2016-11-13 17:18 | Inpatient (IN) | payer OTHER, MEDICARE ==
[~2016-11-13] VITALS: Ht 190.5 cm; Wt 88.6 kg
[~2016-11-13 17:18] MED LIST changes: +DOCU1CAP39 PO; +LACT PO; +Lactulose Liq PO; -MONT10TA4 PO; +PRAM0.12 PO
[2016-11-13 17:22] VITALS: BP 124/66; PULSE 102; RESP 14; TEMP 97.8; O2SAT 98
[2016-11-13 18:06] VITALS: BP 99/65; PULSE 88; RESP 14; O2SAT 98
[2016-11-13] MEDS ORDERED: SODIUM CHLOR 0.9% 1000 ML INJ 1,000 ML IV SCH (18:25)
--- NOTE | 2016-11-13 18:39 | PD ---
HPI Chief Complaint: Psychiatric Symptoms Time Seen by Provider: 18:25 Travel History International Travel<30 days: No Contact w/Intl Traveler<30days: No Traveled to known affect area: No History of Present Illness HPI 71- year old male presents complaining of severe depression and bloating. The patient states that the depression started in the beginning of August. The patient was originally on Cymbalta and was supposed to be transitioned to Elavil. The patient reports that the Elavil was not covered by his insurance and currently is not on either medication. The patient reports he has no appetite and is not sleeping well. He states he is not able to sleep without taking Ambien or Trazodone. He denies any SI/HI. The patient reports that his last bowel movement was one week ago, and normally has a BM daily. He denies any abdominal pain, but states that he feels bloated. He denies any nausea, vomiting, fevers, or chills. He denies any prior abdominal surgeries. The patient denies any pain. The patient denies any other medical issues besides peripheral neuropathy in his feet. PFSH Past Medical History Anxiety: Yes Depression: Yes Cancer: Yes (lipoma removed from left leg) Cardiovascular Problems: Yes (IDIOPATHIC NEUROPATHY BILAT LEGS) High Cholesterol: Yes Diminished Hearing: No Musculoskeletal: Yes (RLS) Influenza Vaccination: Yes Past Surgical History Other Surgery: Yes (lipoma removed) Social History Alcohol Use: No Tobacco Use: No Substance Use: No Allergies-Medications (Allergen,Severity, Reaction): Coded Allergies: Sulfa (Verified Allergy, Intermediate, vomiting, 11/13/16) Reported Meds & Prescriptions Reported Meds & Active Scripts Active Dok (Docusate Sodium) 100 Mg Cap 100 Mg PO BID Reported Lorazepam 1 Mg Tab 1 Mg PO Q8H PRN Zolpidem (Zolpidem Tartrate) 10 Mg Tab 10 Mg PO HS Trazodone (Trazodone HCl) 100 Mg Tablet 100 Mg PO HS Review of Systems General / Constitutional: No: Fever, Chills, Weight Gain, Weight Loss, Other Eyes: No: Diploplia, Blurred Vision, Photophobia, Drainage, Redness, Foreign Body Sensation, Pain, Tearing, Blind Spots, Visual changes, Blindness, Other HENT: No: Headaches, Vertigo, Lightheadedness, Sore Throat, Rhinitis, Rhinorrhea, Congestion, Nosebleed, Neck Stiffness, Neck Pain, Masses, Gingival Bleeding, Dental Difficulties, Ear Discharge, Earache, Other Cardiovascular: No: Chest Pain or Discomfort, Palpitations, Irregular Rhythm, Tachycardia, Diaphoresis, Syncope, Dyspnea on exertion, Varicosities, Edema, Cyanosis, Varicosities, Phlebitis, Claudication, Other Respiratory: No: Cough, Shortness of Breath, Wheezing, Sneezing, Orthopnea, Hemoptysis, Stridor, Night Sweats, Pleuritic Pain, Other Gastrointestinal: Positive: Constipation, Other (Bloating), No: Nausea, Vomiting, Diarrhea, Abdominal Pain, Hematemesis, Hematochezia, Changes in Bowel Habits, Indigestion, Dysphagia, Loss of Appetite Genitourinary: No: Urgency, Frequency, Dysuria, Nocturia, Hematuria, Decreased Urinary Output, Oliguria, Hesitancy, Dribbling, Incontinence, Pelvic Pain, Flank Pain, Dyspareunia, Discharge, Dysmenorrhea, Menorrhagia, Metorrhagia, Vaginal Bleeding, Other Musculoskeletal: No: Myalgias, Arthralgias, Limited ROM, Weakness, Cramping, Edema, Pain, Atrophy, Other Skin: No Rash, No Itching, No Dryness, No Lumps, No Hives, No Change in Pigmentation, No Change in nails, No Alopecia, No Lesions, No Breast Lumps, No Breast Tenderness, No Breast Swelling, No Other Neurologic: Positive: Paresthesia, No: Weakness, Dizziness, Syncope, Focal Abnormalities, Coordination Problem, Tremor, Ataxia, Headache, Change in Mentation, Slurred Speech, Incontinence, Seizures, Sensory Disturbance, Other Psychiatric: Positive: Depression, No: Anxiety, Suicidal Ideations, Disorder of Thought, Mood Disorder, Substance Abuse, Homicidal Ideation, Other Physical Exam Narrative GENERAL: SKIN: Warm and dry. HEAD: Atraumatic. Normocephalic. EYES: Pupils equal and round. No scleral icterus. No injection or drainage. ENT: No nasal bleeding or discharge. Mucous membranes pink and moist. NECK: Trachea midline. No JVD. CARDIOVASCULAR: Regular rate and rhythm. RESPIRATORY: No accessory muscle use. Clear to auscultation. Breath sounds equal bilaterally. GASTROINTESTINAL: Mildly distended, Abdomen soft, non-tender. Hepatic and splenic margins not palpable. MUSCULOSKELETAL: Extremities without clubbing, cyanosis, or edema. No obvious deformities. NEUROLOGICAL: Awake and alert. No obvious cranial nerve deficits. Motor grossly within normal limits. Five out of 5 muscle strength in the arms and legs. Normal speech. PSYCHIATRIC: Depressed, insight and judgment normal. Data Data Last Documented VS Vital Signs Date Time Temp Pulse Resp B/P Pulse Ox O2 Delivery O2 Flow Rate FiO2 11/13/16 19:23 83 14 11/13/16 19:19 103/55 98 Room Air 11/13/16 17:22 97.8 Orders Complete Blood Count With Diff (11/13/16 18:18) Comprehensive Metabolic Panel (11/13/16 18:18) Thyroid Stimulating Hormone (11/13/16 18:18) Urinalysis - C+S If Indicated (11/13/16 18:18) Psych Screen (11/13/16 18:18) Alcohol (Ethanol) (11/13/16 18:18) Abdomen, Flat & Upright (11/13/16 ) Sodium Chlor 0.9% 1000 Ml Inj (Ns 1000 M (11/13/16 18:25) Labs Laboratory Tests Test 11/13/16 11/13/16 18:20 19:16 White Blood Count 5.6 TH/MM3 Red Blood Count 4.90 MIL/MM3 Hemoglobin 15.6 GM/DL Hematocrit 44.6 % Mean Corpuscular Volume 91.0 FL Mean Corpuscular Hemoglobin 31.9 PG Mean Corpuscular Hemoglobin 35.0 % Concent Red Cell Distribution Width 14.0 % Platelet Count 162 TH/MM3 Mean Platelet Volume 8.5 FL Neutrophils (%) (Auto) 82.2 % Lymphocytes (%) (Auto) 8.0 % Monocytes (%) (Auto) 9.6 % Eosinophils (%) (Auto) 0.0 % Basophils (%) (Auto) 0.2 % Neutrophils # (Auto) 4.6 TH/MM3 Lymphocytes # (Auto) 0.4 TH/MM3 Monocytes # (Auto) 0.5 TH/MM3 Eosinophils # (Auto) 0.0 TH/MM3 Basophils # (Auto) 0.0 TH/MM3 CBC Comment DIFF FINAL Differential Comment Sodium Level 139 MEQ/L Potassium Level 3.9 MEQ/L Chloride Level 101 MEQ/L Carbon Dioxide Level 28.0 MEQ/L Anion Gap 10 MEQ/L Blood Urea Nitrogen 17 MG/DL Creatinine 0.96 MG/DL Estimat Glomerular Filtration 77 ML/MIN Rate Random Glucose 91 MG/DL Calcium Level 9.7 MG/DL Total Bilirubin 1.4 MG/DL Aspartate Amino Transf 23 U/L (AST/SGOT) Alanine Aminotransferase 47 U/L (ALT/SGPT) Alkaline Phosphatase 60 U/L Total Protein 6.6 GM/DL Albumin 3.8 GM/DL Thyroid Stimulating Hormone 2.480 uIU/ML 3rd Gen Ethyl Alcohol Level LESS THAN 3 MG/DL Urine Color YELLOW Urine Turbidity CLEAR Urine pH 6.0 Urine Specific [place] 1.031 Urine Protein TRACE mg/dL Urine Glucose (UA) NEG mg/dL Urine Ketones TRACE mg/dL Urine Occult Blood NEG Urine Nitrite NEG Urine Bilirubin NEG Urine Urobilinogen 4.0 MG/DL Urine Leukocyte Esterase NEG Urine RBC 1 /hpf Urine WBC LESS THAN 1 /hpf Microscopic Urinalysis Comment CULT NOT INDICATED MDM Medical Decision Making Medical Screen Exam Complete: Yes Emergency Medical Condition: Yes Medical Record Reviewed: Yes Interpretation(s) CBC & BMP Diagram 11/13/16 18:20 LFTs WNL Differential Diagnosis Depression vs. Anxiety vs. Failure to Thrive Obstruction Constipation Narrative Course 71-year-old male that presents to the ED for evaluation of depression. Patient was told by his doctor Dr. Meredith to come here to get evaluated for depression. Patient states that he has not had any medications for the past couple months. Per patient he was hoping to get a new medication but his insurance weren't M so he has not been taking anything for this and his been feeling more anhedonic as well as depressed. No suicidal ideation or homicidal ideation. Patient also complaining of some constipation and losing weight. Patient was recently admitted for something similar. He was more about where for the failure to thrive. On examination patient does appear to be somewhat dehydrated but otherwise in no acute distress. Labs and imaging were done and show constipation otherwise no sign of acute disease. At this time patient will be medically clear for psychiatric evaluation. Okay to be seen by psych. Case was discussed in my attending who agrees with this plan. Mental health screening was discussed with the patient. Diagnosis Primary Impression: Major depressive disorder, recurrent, moderate Additional Impression: Constipation Qualified Code: K59.01 - Slow transit constipation Jamari Plasencia Nov 13, 2016 18:39
[2016-11-13 18:54] LABS: AUTOMATED NEUTROPHIL # 4.6 TH/MM3 (1.8-7.7); BASOPHIL % 0.2 % (0.0-2.0); HEMATOCRIT 44.6 % (39.0-51.0); HEMO FLAGS DIFF FINAL; LYMPHOCYTE # 0.4 TH/MM3 (1.0-4.8); MEAN CORPUSCULAR HEMOGLOBIN 31.9 PG (27.0-34.0); MONO % 9.6 % (0.0-8.0); NEUT % 82.2 % (16.0-70.0); PLATELET COUNT 162 TH/MM3 (150-450); WHITE BLOOD COUNT 5.6 TH/MM3 (4.0-11.0)
[2016-11-13 19:06] LABS: ANION GAP 10 MEQ/L (5-15); AST (GOT) 23 U/L (15-37); BLOOD UREA NITROGEN 17 MG/DL (7-18); CHLORIDE 101 MEQ/L (98-107); GLOMERULAR FILTRATION RATE 77 ML/MIN (>89); POTASSIUM 3.9 MEQ/L (3.5-5.1); SODIUM (NA) 139 MEQ/L (136-145)
[2016-11-13 19:07] LABS: ALT (GPT) 47 U/L (12-78)
[2016-11-13 19:16] LABS: ALKALINE PHOSPHATASE 60 U/L (45-117); TOTAL BILIRUBIN ADULT 1.4 MG/DL (0.2-1.0)
[2016-11-13 19:19] VITALS: BP 103/55; PULSE 83; RESP 14; O2SAT 98
--- NOTE | 2016-11-13 19:24 | RADRPT ---
EXAM DATE/TIME: 11/13/2016 18:42 [facility] COMPARISON: No previous studies available for comparison. INDICATIONS : Depression; patient unable to eat solid foods for 1 month. Patient states that he feels "Full." MEDICAL HISTORY : None. SURGICAL HISTORY : None. ENCOUNTER: Initial ACUITY: 1 month PAIN SCORE: 0/10 LOCATION: Abdomen. FINDINGS: There are few gas containing loops of small bowel in the left hypogastric region which measure up to 2.8 cm in width. Gas in the right colon and prominent amount of stool in the transverse and left col on. No air-fluid levels seen on the erect view. The visualized lower lungs are clear. Moderate deg enerative changes of lower lumbar spine with mild right lumbar scoliosis. Calcified phleboliths in t he lower pelvis. CONCLUSION: Mild left-sided constipation and a few mildly dilated loops of small bowel in the left epigastric reg ion. Eh Yoon MD on November 13, 2016 at 19:19 Board Certified Radiologist. This report was verified electronically.
[2016-11-13 19:40] LABS: BLOOD, URINE NEG (NEG); GLUCOSE,URINE NEG (NEG); KETONE, URINE TRACE mg/dL (NEG); NITRITE,URINE NEG (NEG); URINE COLOR YELLOW (YELLW/STRAW)
[2016-11-13 19:43] LABS: COMMENT (UR) CULT NOT INDICATED; CULTURE IF INDICATED CULT NOT INDICATED
[2016-11-14 00:53] VITALS: BP 128/74; PULSE 79; RESP 17; O2SAT 98
[2016-11-14 02:21] VITALS: BP 149/78; PULSE 71; RESP 19; O2SAT 97
[2016-11-14 06:34] VITALS: BP 133/75; PULSE 78; RESP 18
--- NOTE | 2016-11-14 10:13 | PD ---
History of Present Illness Chief Complaint: Psychiatric Symptoms Time Seen by Provider: 09:45 Travel History International Travel<30 Days: No Contact w/Intl Traveler<30days: No Known affected area: No Legal Status Legal Status: Voluntary History of Present Illness: History of Present Illness HPI 71- year old male with history of restless leg syndrome, neuropathy as well as depression who presents to the ED for psychiatric evaluation as well as for evaluation of stomach bloating . He states that he was seen by his PCP and she recommended that he come to the ED for further evaluation. Varinder fairchild reports that in August his PCP began treating his symptoms of depression. He was started on Cymbalta. He saw his urologist last week who felt the Cymbalta was not working so he discontinued the Cymbalta and was prescribed Elavil. Nevertheless,the patient never started the Elavil since his insurance does not cover it. The patient is complaining of not eating with reported weight loss of at fifty pounds since August, impaired sleep despite taking Ativan, Ambien and trazodone with only getting 5 hours per night, low level of energy, anhedonia, social isolation, decreased concentration,and attention. Denies suicidal ideation. EMR is reviewed. The patient was evaluated by Dr. Hines on October 31, 2016 while he was medically admitted. At that time his medications were adjusted and voluntary admission was recommended but patient declined. He has had no further contact with [facility] psychiatric department. Patient is seen in [facility]. He is alert, oriented male in [facility]. He appears depressed with flat affect. Speech is clear but paucity of response. There is no psychosis. He denies any suicidal or homicidal ideation, intent or plan. He agrees to a voluntary psychiatric admission. PFSH Past Medical History Anxiety: Yes Depression: Yes Cancer: Yes (lipoma removed from left leg) Cardiovascular Problems: Yes (IDIOPATHIC NEUROPATHY BILAT LEGS) High Cholesterol: Yes Diminished Hearing: No Musculoskeletal: Yes (RLS) Influenza Vaccination: Yes Past Surgical History Other Surgery: Yes (lipoma removed) Psychiatric History Psychiatric History Hx Psychiatric Treatment: None reported. Has been on antidepressants prescribed by his PCP since august. History of Inpatient Treatment: No Guns or firearms in home: No Social History x 48 years. lives with his and his daughter. 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 Hx Alcohol Use: No Hx Tobacco Use: No Hx Substance Use: No Family Psychiatric History Negative Allergies-Medications (Allergen,Severity, Reaction): Coded Allergies: Sulfa (Verified Allergy, Intermediate, vomiting, 11/13/16) Reported Meds & Prescriptions Reported Meds & Active Scripts Active Dok (Docusate Sodium) 100 Mg Cap 100 Mg PO BID Reported Lorazepam 1 Mg Tab 1 Mg PO Q8H PRN Zolpidem (Zolpidem Tartrate) 10 Mg Tab 10 Mg PO HS Trazodone (Trazodone HCl) 100 Mg Tablet 100 Mg PO HS Review of Systems Except as stated in HPI: all other systems reviewed are Neg Gastrointestinal: COMPLAINS OF: Constipation, Anorexia Psychiatric: COMPLAINS OF: Depression Exam Alert: Yes [place]: Person (ox4) Mood: Depressed Affect: Flat Speech: Clear, Logical Eye Contact: Normal Memory Intact: Comment (Not f ormally tetsted) Hallucinations: Other (Negative) Delusions: No Suicidal: Ideation (denies any) Homicidal: Ideation (denies any) Insight/Judgement Fair. not impaired. MDM Medical Decision Making Medical Record Reviewed: Yes Assessment/Plan 71- year old male with history of restless leg syndrome, neuropathy as well as depression who presents to the ED for psychiatric evaluation as well as for evaluation of stomach bloating . He states that he was seen by his PCP and she recommended that he come to the ED for further evaluation. H gurinder reports that in August his PCP began treating his symptoms of depression. He was started on Cymbalta. He saw his urologist last week who felt the Cymbalta was not working so he discontinued the Cymbalta and was prescribed Elavil. Nevertheless,the patient never started the Elavil since his insurance does not cover it. The patient is complaining of not eating with reported weight loss of at fifty pounds since August, impaired sleep despite taking Ativan, Ambien and trazodone with only getting 5 hours per night, low level of energy, anhedonia, social isolation, decreased concentration,and attention. Denies suicidal ideation. [facility], stabilize mood as well as to initiate treatment. Orders Complete Blood Count With Diff (11/13/16 18:18) Comprehensive Metabolic Panel (11/13/16 18:18) Thyroid Stimulating Hormone (11/13/16 18:18) Urinalysis - C+S If Indicated (11/13/16 18:18) Psych Screen (11/13/16 18:18) Alcohol (Ethanol) (11/13/16 18:18) Abdomen, Flat & Upright (11/13/16 ) Sodium Chlor 0.9% 1000 Ml Inj (Ns 1000 M (11/13/16 18:25) Diet Regular Basic (11/14/16 Breakfast) Results Vital Signs Date Time Temp Pulse Resp B/P Pulse Ox O2 Delivery O2 Flow Rate FiO2 11/14/16 06:34 78 18 133/75 Room Air 11/14/16 02:21 71 19 149/78 97 Room Air 11/14/16 00:53 79 17 128/74 98 Room Air 11/13/16 19:23 83 14 11/13/16 19:19 83 14 103/55 98 Room Air 11/13/16 18:06 88 14 99/65 98 Room Air 11/13/16 17:22 97.8 102 14 124/66 98 Laboratory Tests Test 11/13/16 11/13/16 18:20 19:16 White Blood Count 5.6 Red Blood Count 4.90 Hemoglobin 15.6 Hematocrit 44.6 Mean Corpuscular Volume 91.0 Mean Corpuscular Hemoglobin 31.9 Mean Corpuscular Hemoglobin 35.0 Concent Red Cell Distribution Width 14.0 Platelet Count 162 Mean Platelet Volume 8.5 Neutrophils (%) (Auto) 82.2 Lymphocytes (%) (Auto) 8.0 Monocytes (%) (Auto) 9.6 Eosinophils (%) (Auto) 0.0 Basophils (%) (Auto) 0.2 Neutrophils # (Auto) 4.6 Lymphocytes # (Auto) 0.4 Monocytes # (Auto) 0.5 Eosinophils # (Auto) 0.0 Basophils # (Auto) 0.0 CBC Comment DIFF FINAL Differential Comment Sodium Level 139 Potassium Level 3.9 Chloride Level 101 Carbon Dioxide Level 28.0 Anion Gap 10 Blood Urea Nitrogen 17 Creatinine 0.96 Estimat Glomerular Filtration 77 Rate Random Glucose 91 Calcium Level 9.7 Total Bilirubin 1.4 Aspartate Amino Transf 23 (AST/SGOT) Alanine Aminotransferase 47 (ALT/SGPT) Alkaline Phosphatase 60 Total Protein 6.6 Albumin 3.8 Thyroid Stimulating Hormone 2.480 3rd Gen Ethyl Alcohol Level LESS THAN 3 Urine Color YELLOW Urine Turbidity CLEAR Urine pH 6.0 Urine Specific [place] 1.031 Urine Protein TRACE Urine Glucose (UA) NEG Urine Ketones TRACE Urine Occult Blood NEG Urine Nitrite NEG Urine Bilirubin NEG Urine Urobilinogen 4.0 Urine Leukocyte Esterase NEG Urine RBC 1 Urine WBC LESS THAN 1 Microscopic Urinalysis Comment CULT NOT INDICATED Diagnosis Primary Impression: major depressive disorder Additional Impression: Constipation Admitting Information Admitting Physician Requests: Admit Problem Qualifiers Additional Impression: Constipation Qualified Code: K59.01 - Slow transit constipation Veronika Durbin [facility] Nov 14, 2016 10:13
[2016-11-14 10:36] VITALS: BP 143/76; PULSE 79; RESP 18; O2SAT 96
[2016-11-14] MEDS ORDERED: ALUMINUM/MAGNESIUM/SIMETH 30 ML CUP PO PRN (11:00)
[2016-11-14] MEDS ORDERED: ACETAMINOPHEN 325 MG TAB PO PRN (11:00)
[2016-11-14 11:40] VITALS: BP 138/78; PULSE 97; RESP 18; TEMP 98; O2SAT 94
[2016-11-14] MEDS: DOCUSATE SODIUM 100 MG CAP PO SCH (20:56)
[2016-11-14] MEDS ORDERED: traZODone HCL 50 MG TAB PO SCH (21:00)
[2016-11-14 22:00] VITALS: BP 109/63; PULSE 128; RESP 24; TEMP 98.2; O2SAT 98
[2016-11-15 05:40] VITALS: BP 116/70; PULSE 92; RESP 20; TEMP 97.9; O2SAT 97
[2016-11-15] MEDS: DOCUSATE SODIUM 100 MG CAP PO SCH ×2 (09:13→21:10)
[2016-11-15 11:13] LABS: ANION GAP 11 MEQ/L (5-15); BICARBONATE 23.3 MEQ/L (21.0-32.0); BLOOD UREA NITROGEN 9 MG/DL (7-18); CHLORIDE 101 MEQ/L (98-107); GLOMERULAR FILTRATION RATE 71 ML/MIN (>89); POTASSIUM 3.6 MEQ/L (3.5-5.1); SODIUM (NA) 135 MEQ/L (136-145)
[2016-11-15 11:18] LABS: HDL CHOLESTEROL 58.8 MG/DL (40.0-60.0); LDL CHOLESTEROL 137 MG/DL (0-99)
[2016-11-15 11:38] LABS: HEMOGLOBIN A1a 0.8 %; HEMOGLOBIN A1b 1.5 %; HEMOGLOBIN Ao 86.5 %; HEMOGLOBIN LA1C 1.9 %; HEMOGLOBIN P3 3.5 %
[2016-11-15] MEDS: SERTRALINE HCL 50 MG TAB PO SCH (13:15)
--- NOTE | 2016-11-15 13:33 | HHI.HP ---
Provisional Diagnosis Admission Date Nov 14, 2016 at 10:39 [place]. Major depression recurrent moderate f 33.1 Certification of Person's Competence To Provide Express and Informed Consent I have personally examined Gerard Godinez , a person being served at [facility] on, Nov 15, 2016 13:18. Express and informed consent means consent voluntarily given in writing, by a competent person, after sufficient explanation and disclosure of the subject matter involved to enable the person to make a knowing and willful decision without any element of force, fraud, deceit, duress, or other form of constraint or coercion. This person is 18 years of age or older, is not now known to be incompetent to consent to treatment with a guardian advocate, and does not have a health care surrogate or proxy currently making medical treatment decisions. I have found this person to be one of the following: [xxx] Competent to provide express and informed consent, as defined above, for voluntary admission to this facility and is competent to provide express and informed consent for treatment. He/she has the consistent capacity to make well reasoned, willful, and knowing decisions concerning his or her medical or mental health treatment. The person fully and consistently understands the purpose of the admission for examination/placement and is fully capable of personally exercising all rights assured [place] Incompetent to provide express and informed consent to voluntary admission, and this is incompetent to provide express and informed consent to treatment. The person must be transferred to involuntary status and a petition for a guardian advocate filed with the Circuit Court. [] Refusing to provide express and informed consent to voluntary admission but is competent to provide express and informed consent for treatment. The person must be discharged or transferred to involuntary status. Form shall be completed within 24 hours of a person's arrival at the receiving facility and filed in the clinical record of each person: 1. Admitted on a voluntary basis 2. Permitted to provide express and informed consent to his/her own treatment 3. Allowed to transfer from involuntary to voluntary status 4. Prior to permitting a person to consent to his or her own treatment after having been previously found incompetent to consent to treatment. History of Present Illness Capacity: Has Capacity HPI Patient is a 71-year-old white male who comes her voluntarily complaining of depression with continued significant weight loss over the past month or so 50+ pounds. He feels the medication is not being successful. 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 He describes the feeling that insomnia with early a.m. awakening. A.m. anergy. Decreased energy. Decreased appetite with 50+ pound weight loss. There is decreased concentration and attention. He says his coping skills continue to remain satisfactory. He does deny voices or visions with this. Denies any alcohol or drug use with it. He does denies suicidality. He states he has had a trial of Cymbalta by his primary care physician going from 30-60 mg without significant response, he does complain primarily of the poor sleep stating he has been on Ambien and trazodone with little success. He states he said issue depression many years ago has been on Effexor and perhaps Zoloft. Patient lives with his and his only child an adult daughter whom he states has alcohol related issues. 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 He denies any physical or sexual abuse. Denies any mental illness in his family. At this time patient does meet criteria for involuntary inpatient psychiatric hospitalization to adjust medications and a moderately responses we will increase his at bedtime trazodone 150 mg. We will discontinue the at bedtime Ambien and had 1 mg of Klonopin at at bedtime. We will also add Zoloft at 25 mg daily. Hopeless with fairly short stay and we can referral through to mental health services in the community Review of Systems Constitutional: COMPLAINS OF: Fatigue, Weight loss, Change in appetite, DENIES : Diaphoretic episodes, Fever, Weight gain, Chills, Dizziness, Night Sweats Endocrine: DENIES: Heat/cold intolerance, Polydipsia, Polyuria, Polyphagia Eyes: DENIES: Blurred vision, Diplopia, Eye inflammation, Eye pain, Vision loss , Photosensitivity, Double Vision Ears, nose, mouth, throat: DENIES: Tinnitus, Hearing loss, Vertigo, Nasal discharge, Oral lesions, Throat pain, Hoarseness, Ear Pain, Running Nose, Epistaxis, Sinus Pain, Toothache, Odynophagia Respiratory: DENIES: Apneas, Cough, Snoring, Wheezing, Hemoptysis, Sputum production, Shortness of breath Cardiovascular: DENIES: Chest pain, Palpitations, Syncope, Dyspnea on Exertion , PND, Lower Extremity Edema, Orthopnea, Claudication Gastrointestinal: COMPLAINS OF: Constipation, DENIES: Abdominal pain, Black stools, Bloody stools, Diarrhea, Nausea, Vomiting, Difficulty Swallowing, Anorexia Genitourinary: DENIES: Sexual dysfunction, Urinary frequency, Urinary incontinence, Urgency, Hematuria, Dysuria, Nocturia, Penile Discharge, Testicular Pain, Testicular Swelling Musculoskeletal: DENIES: Joint pain, Muscle aches, Stiffness, Joint Swelling, Back pain, Neck pain Integumentary: DENIES: Abnormal pigmentation, Nail changes, Pruritus, Rash Hematologic/lymphatic: DENIES: Bruising, Lymphadenopathy Immunologic/allergic: DENIES: Eczema, Urticaria Neurologic: DENIES: Abnormal gait, Headache, Localized weakness, Paresthesias, Seizures, Speech Problems, Tremor, Poor Balance Psychiatric: COMPLAINS OF: Depression Past Psych History Psychological trauma history Patient denies physical or sexual abuse Violence risk - others (6 mos) Low Violence risk - self (6 mos) Low Substance Abuse History Drugs/Alcohol past 12 months States rare social drinker Past Family Social History Coded Allergies: Sulfa (Verified Allergy, Intermediate, vomiting, 11/13/16) Past Medical History Please see MedSurg assessment Active Scripts Docusate Sodium (Dok)100 Mg [id number] Mg PO BID #62 CAP Prov:Maureen Sykes MD 10/31/16 Reported Medications Lorazepam 1 Mg Tab1 Mg PO Q8H PRN (ANXIETY) Ref 0 09/25/16 Zolpidem 10 Mg Tab10 Mg PO HS Ref 0 09/25/16 Trazodone 100 Mg [id number] Mg PO HS #30 TAB Ref 0 09/25/16 Discontinued Reported Medications Atorvastatin 40 Mg Tab40 Mg PO HS #30 TAB Ref 0 09/25/16 Discontinued Scripts [Lactulose] (Lactulose Liq)30 ML SYRP No Conflict Check30 Ml PO BID #62 ML Prov:Maureen Sykes MD 10/31/16 Lactobacillus Acidophilus (Acidophilus/l-Sporogenes)1 Tab Tab1 Tab PO Q12HR # 62 TAB Prov:Maureen Sykes MD 10/31/16 Pramipexole 0.125 Mg Tab0.125 Mg PO DAILY #30 TAB Ref 0 Prov:Maureen Sykes MD 10/31/[address] 30 Mg Capdr60 Mg PO BID #62 CAP Prov:Maureen Sykes MD 10/31/16 Current Medications Medications (Trade) Dose Ordered Sig/Giorgi Route Start Time Stop Time Status Last Admin (Tylenol) 650 mg Q4H PRN PO 11/14/16 11:00 (Milk Of Magnesia Liq) 30 ml DAILY PRN PO 11/14/16 11:00 (Mag-Al Plus Susp Liq) 30 ml Q6H PRN PO 11/14/16 11:00 (Colace) 100 mg BID PO 11/14/16 21:00 11/15/16 09:13 (Desyrel) 100 mg HS PO 11/14/16 21:00 11/14/16 20:57 Family History Patient denies mental health or addictions and family Social History Patient discussed his and adult daughter whom he states has been alcohol abuse issue Patient's Strengths (min. 2) Calm cooperative intelligent Physical Exam Patient seen screened in ED exam been reviewed and agreed with patient sitting quietly in his room with nurse Scruggs and gricelda Aguilera present throughout session. He is sitting calmly in no acute distress, neck supple he is in no respiratory distress. No complaints of abdominal pain but said he did have a formed difficult stool this morning. Patient moves all 4 extremities without difficulty patient is noted to have some mild tremors in both upper extremities Vital Signs Vital Signs Date Time Temp Pulse Resp B/P Pulse Ox O2 Delivery O2 Flow Rate FiO2 11/15/16 05:40 97.9 92 20 116/70 97 11/14/16 10:36 Room Air Mental Status Examination Alert oriented white male appears stated age white hair and light beer neatly trimmed cooperative is somewhat guarded and responses at times needing some redirection Appearance Clean neatly Speech: Slow, Tangential (at times) Orientation: x3 Memory: Unremarkable Thought Process: Linear Thought Content: Unremarkable Language Fair Fund of Knowledge Fair Hallucination Type: None (denies) Attention and Concentration: Other (fair) Suicidal Ideation: No (denies) Previous Suicide Attempts: No Homicidal Ideation: No (denies) Previous Homicide Attempts: No Insight: Fair Judgment: WNL Affect: Other (decreased range intensity) Mood: Euthymic (to dysphoric and somewhat restricted) Motor Activity: Abnormal gait-specify (patient using walker) Assessment & Plan Problem List: (1) Major depressive disorder, recurrent, moderate ICD Code: F33.1 Assessment & Plan Estimated LOS: days this time patient meets criteria for voluntary inpatient psychiatric treatment. Will have medication adjustments [id number] monitoring and follow-up. Discharge Planning To be determined Request Surrog/Guard Advoc?: Deni Garcia MD Nov 15, 2016 13:32
--- NOTE | 2016-11-15 15:22 | PD.CONS ---
HPI Service [facility] Hospitalists Consult Requested By Psychiatric services Reason for Consult Medical management Primary Care Physician Anusha Meredith MD Diagnoses: History of Present Illness Written by Aislinn Springer PA-C acting as scribe for Dr. Garcia on 11/15/16 at 15 :00. This is a 71-year-old male with a past medical history significant for peripheral neuropathy, hyperlipidemia, history of melanoma and depression who was admitted to the psychiatric unit on a voluntary basis with complaints of depression. Hospitalist services have been consulted for medical management. Patient reports decreased appetite. He reports insomnia and states he has not slept in the last 48 hours. He reports constipation although admits to having a bowel movement this morning but it was hard and small. He denies any other medical complaints at this time. He denies any fever or chills. He denies any nausea, vomiting or abdominal pain. He denies any chest pain or shortness of breath. He denies any dysuria or hematuria. Review of Systems Except as stated in HPI: all other systems reviewed are Neg Past Family Social History Allergies: Coded Allergies: Sulfa (Verified Allergy, Intermediate, vomiting, 11/13/16) Past Medical History Peripheral neuropathy Constipation History of melanoma Depression Dyslipidemia, patient does not take a statin Past Surgical History Excision of lipoma Reported Medications Lorazepam 1 Mg Tab1 Mg PO Q8H PRN (ANXIETY) Ref 0 09/25/16 Zolpidem 10 Mg Tab10 Mg PO HS Ref 0 09/25/16 Trazodone 100 Mg [id number] Mg PO HS #30 TAB Ref 0 09/25/16 Active Ordered Medications Current Medications Medications (Trade) Dose Ordered Sig/Giorgi Route Start Time Stop Time Status Last Admin (Tylenol) 650 mg Q4H PRN PO 11/14/16 11:00 (Milk Of Magnesia Liq) 30 ml DAILY PRN PO 11/14/16 11:00 (Mag-Al Plus Susp Liq) 30 ml Q6H PRN PO 11/14/16 11:00 (Colace) 100 mg BID PO 11/14/16 21:00 11/15/16 09:13 (Desyrel) 150 mg HS PO 11/15/16 21:00 (Zoloft) 25 mg DAILY PO 11/15/16 13:15 (KlonoPIN) 1 mg HS PO 11/15/16 21:00 Family History Both parents lived to be Social History Patient denies any tobacco use. Reports rare alcohol consumption. Denies any illicit drug use. Physical Exam Vital Signs Vital Signs Date Time Temp Pulse Resp B/P Pulse Ox O2 Delivery O2 Flow Rate FiO2 11/15/16 05:40 97.9 92 20 116/70 97 11/14/16 22:00 98.2 128 24 109/63 98 Physical Exam GENERAL: This is a well-nourished, well-developed patient, in no apparent distress. SKIN: No rashes, ecchymoses or lesions. Cool and dry. HEAD: Atraumatic. Normocephalic. No temporal or scalp tenderness. EYES: Pupils equal round and reactive. Extraocular motions intact. No scleral icterus. No injection or drainage. ENT: Nose without bleeding, purulent drainage or septal hematoma. Throat without erythema, tonsillar hypertrophy or exudate. Uvula midline. Airway patent. NECK: Trachea midline. No JVD or lymphadenopathy. Supple, nontender, no meningeal signs. CARDIOVASCULAR: Regular rate and rhythm without murmurs, gallops, or rubs. RESPIRATORY: Clear to auscultation. Breath sounds equal bilaterally. No wheezes , rales, or rhonchi. GASTROINTESTINAL: Abdomen soft, non-tender, nondistended. No hepato-splenomegaly , or palpable masses. No guarding. MUSCULOSKELETAL: Extremities without clubbing, cyanosis, or edema. No joint tenderness, effusion, or edema noted. No calf tenderness. Negative Homans sign bilaterally. NEUROLOGICAL: Awake and alert. Cranial nerves II through XII intact. Motor and sensory grossly within normal limits. Five out of 5 muscle strength in all muscle groups. Normal speech. Laboratory Laboratory Tests Test 11/15/16 09:53 Sodium Level 135 Potassium Level 3.6 Chloride Level 101 Carbon Dioxide Level 23.3 Anion Gap 11 Blood Urea Nitrogen 9 Creatinine 1.03 Estimat Glomerular Filtration 71 Rate Random Glucose 104 Hemoglobin A1c 5.1 Calcium Level 9.9 Triglycerides Level 97 Cholesterol Level 215 LDL Cholesterol 137 HDL Cholesterol 58.8 Cholesterol/HDL Ratio 3.65 Result Diagram: 11/13/16 1820 11/15/16 0953 Assessment and Plan Assessment and Plan 71-year-old male with a past medical history significant for peripheral neuropathy, hyperlipidemia, history of melanoma and depression who was admitted to the psychiatric unit on a voluntary basis with complaints of depression. Hospitalist services have been consulted for medical management. Depression Insomnia Decreased appetite - Management per psychiatric team Peripheral neuropathy, chronic per patient report Patient uses a walker at home to aid with ambulation - Patient does not take any medication - PT eval/tx Tachycardiac - patient states has with anxiety - obtain EKG - encourage po intake - monitor Hyponatremia - mild - encourage po intake - repeat lab studies Chronic constipation - Continue with stool softener - Add MiraLAX daily - Monitor for BM Elevated bilirubin - asymptomatic - likely due to poor po intake - obtain bilirubin components HLD - Trig 97, TC 215, LDL 137 - Patient does not take his statin DVT prophylaxis - Patient is ambulatory Thank you kindly for this consultation. Will gladly follow this patient along with you. This note was transcribed by bernardo Springer PA-C . I, Dr. Savita Garcia personally performed the history, physical exam, and medical decision making; and confirmed the accuracy of the information in the transcribed note. Authenticated by Dr. Savita Garcia on 11/15/16 at 15:00. Discussed Condition With Patient and nursing staff Aislinn Springer Nov 15, 2016 15:22 Savita Garcia MD Nov 22, 2016 09:28
[2016-11-15 18:05] VITALS: BP 131/56; PULSE 75; RESP 18; TEMP 98.6; O2SAT 95
[2016-11-15 19:59] LABS: TOTAL BILIRUBIN ADULT 1.4 MG/DL (0.2-1.0)
--- NOTE | 2016-11-15 20:18 | HHI.PR ---
Addendum to Inpatient Note Addendum Reason: Additional Documentation Additional Information My discussion with patient and his during his past 2 outpatient visits revealed that last year patient had what sounds like a manic episode with days without sleeping, increased agitation, "road rage" as his put it. He was actually discharged from another primary care office at that time due to his behavior in the office. He went without care for several months and then around April began a transition from the hyper, agitated behavior to this depressed state. Pts noted that over the years he has had his ups and downs but never to this extent. 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 I was concerned about the potential for underlying bipolar disorder. I have only seen him over the past 6 weeks and his behavior at all times has been with a very flat affect, slow speech, paucity of words, yet able to appropriately answer questions if given time. Fund of knowledge seemed appropriate. MD Viri Villatoro,Anusha Cain MD Nov 15, 2016 20:17
[2016-11-15] MEDS ORDERED: traZODone HCL 50 MG TAB PO SCH (21:00)
[2016-11-15] MEDS: clonazePAM 1 MG TAB PO SCH (21:10)
[2016-11-16 06:06] VITALS: BP 113/50; PULSE 92; RESP 18; TEMP 97.9; O2SAT 98
[2016-11-16] MEDS: DOCUSATE SODIUM 100 MG CAP PO SCH ×2 (08:44→21:10)
[2016-11-16] MEDS: SERTRALINE HCL 50 MG TAB PO SCH (08:44)
[2016-11-16] MEDS: MAGNESIUM HYDROXIDE SUSP 30 ML CUP PO PRN (08:56)
--- NOTE | 2016-11-16 13:26 | HHI.PYPN ---
Subjective Remarks Dr. Meredith's note reviewed appreciated and agreed with. Patient seen in his room with nurse Sotero. Chart reviewed. Patient compliant medications. Considering Dr. Meredith's note and patient's history I feel there may be a component of mood disorder with this gentleman. We will add lithium 300 mg at bedtime to the regimen. Considering his strong issues with bowel movements or constipation we will discontinue the trazodone and add Elavil 25 mg at at bedtime. Patient denies suicidality today for now continue treatment no change will check lithium level over in 3 days Review of Systems Constitutional: DENIES: Diaphoretic episodes, Fatigue, Fever, Weight gain, Weight loss, Chills, Dizziness, Change in appetite, Night Sweats Endocrine: DENIES: Heat/cold intolerance, Polydipsia, Polyuria, Polyphagia Eyes: DENIES: Blurred vision, Diplopia, Eye inflammation, Eye pain, Vision loss , Photosensitivity, Double Vision Ears, nose, mouth, throat: DENIES: Tinnitus, Hearing loss, Vertigo, Nasal discharge, Oral lesions, Throat pain, Hoarseness, Ear Pain, Running Nose, Epistaxis, Sinus Pain, Toothache, Odynophagia Respiratory: DENIES: Apneas, Cough, Snoring, Wheezing, Hemoptysis, Sputum production, Shortness of breath Cardiovascular: DENIES: Chest pain, Palpitations, Syncope, Dyspnea on Exertion , PND, Lower Extremity Edema, Orthopnea, Claudication Gastrointestinal: COMPLAINS OF: Constipation, DENIES: Abdominal pain, Black stools, Bloody stools, Diarrhea, Nausea, Vomiting, Difficulty Swallowing, Anorexia Genitourinary: DENIES: Sexual dysfunction, Urinary frequency, Urinary incontinence, Urgency, Hematuria, Dysuria, Nocturia, Penile Discharge, Testicular Pain, Testicular Swelling Musculoskeletal: DENIES: Joint pain, Muscle aches, Stiffness, Joint Swelling, Back pain, Neck pain Integumentary: DENIES: Abnormal pigmentation, Nail changes, Pruritus, Rash Hematologic/lymphatic: DENIES: Bruising, Lymphadenopathy Immunologic/allergic: DENIES: Eczema, Urticaria Neurologic: DENIES: Abnormal gait, Headache, Localized weakness, Paresthesias, Seizures, Speech Problems, Tremor, Poor Balance Psychiatric: COMPLAINS OF: Depression, Suicidal Ideation Objective Alert: Yes [place]: Person (ox4) Mood: Depressed Affect: Flat Memory Intact: Comment (Not f ormally tetsted) Hallucinations: Other (Negative) Delusions: No Delusion Type: Other (denies) Suicidal: Ideation (denies any) Homicidal: Ideation (denies any) Insight/Judgment Poor Vitals/IOs Vital Signs Date Time Temp Pulse Resp B/P Pulse Ox O2 Delivery O2 Flow Rate FiO2 11/16/16 06:06 97.9 92 18 113/50 98 11/14/16 10:36 Room Air Intake and Output 11/15/16 11/15/16 11/15/16 07:59 15:59 23:59 Intake Total 240 ml Balance 240 ml Assessment & Plan Problem List: (1) Major depressive disorder, recurrent, moderate ICD Code: F33.1 Assessment & Plan Estimated LOS: days patient continues depressed also with various somatic complaints primarily constipation and some insomnia. She medication adjustments above Justification for Cont. Inpt. At this time patient will decompensate into place to lower level of care Discharge Planning To be determined Request HC Surrog/Guard Advoc?: No Deni Viera MD Nov 16, 2016 13:26
--- NOTE | 2016-11-16 14:49 | EKG ---
Date Performed: 11/15/2016 Time Performed: 20:20:30 PTAGE: 71 years EKG: SINUS TACHYCARDIA WITH OCCASIONAL VENTRICULAR PREMATURE COMPLEXES WITH OCCASIONAL SUPRAVENT RICULAR PREMATURE COMPLEXES MINIMAL ST DEPRESSION ABNORMAL RHYTHM ECG PREVIOUS TRACING : 10/30/2016 16.17 Since previous tracing, no significant change noted DOCTOR: Sophia Conn Interpretating Date/Time 11/16/2016 14:47:06
[2016-11-16 16:53] VITALS: BP 146/70; PULSE 83; RESP 17; TEMP 98.4; O2SAT 97
[2016-11-16] MEDS: clonazePAM 1 MG TAB PO SCH (21:10)
[2016-11-16] MEDS: LITHIUM CARBONATE 300 MG TAB PO SCH (21:10)
[2016-11-16] MEDS: AMITRIPTYLINE HCL 25 MG TAB PO SCH (21:11)
[2016-11-17 05:36] VITALS: BP 109/81; PULSE 96; RESP 17; TEMP 98.2; O2SAT 96
[2016-11-17] MEDS: SERTRALINE HCL 50 MG TAB PO SCH (08:17)
[2016-11-17] MEDS: DOCUSATE SODIUM 100 MG CAP PO SCH ×2 (08:17→20:40)
[2016-11-17] MEDS: MAGNESIUM HYDROXIDE SUSP 30 ML CUP PO PRN (11:44)
--- NOTE | 2016-11-17 13:16 | HHI.PYPN ---
Subjective Remarks Patient seen in his room with nurse tha, chart review, patient compliant medications. Patient states she slept better last night with the Elavil stating it felt like a normal nights sleep. He now denies suicidality. Still some focusing on his bowels states he has not had a bowel movement recently was given another dose of milk of magnesia earlier today we'll continue to observe Review of Systems Except as stated in HPI: all other systems reviewed are Neg Objective Alert: Yes [place]: Person (ox4) Mood: Depressed Affect: Flat Memory Intact: Comment (Not f ormally tetsted) Hallucinations: Other (Negative) Delusions: No Delusion Type: Other (denies) Suicidal: Ideation (denies any) Homicidal: Ideation (denies any) Insight/Judgment Poor to fair Vitals/IOs Vital Signs Date Time Temp Pulse Resp B/P Pulse Ox O2 Delivery O2 Flow Rate FiO2 11/17/16 05:36 98.2 96 17 109/81 96 11/14/16 10:36 Room Air Assessment & Plan Problem List: (1) Major depressive disorder, recurrent, moderate ICD Code: F33.1 Assessment & Plan Estimated LOS: days patient continues depressed though improving somewhat, continues to focus on his constipation, compliant medications Justification for Cont. Inpt. At this time patient would decompensate if placed in a lower level of care Discharge Planning To be determined Request HC Surrog/Guard Advoc?: Deni Garcia MD Nov 17, 2016 13:16
[2016-11-17] MEDS: LITHIUM CARBONATE 300 MG TAB PO SCH (20:39)
[2016-11-17] MEDS: AMITRIPTYLINE HCL 25 MG TAB PO SCH (20:40)
[2016-11-17] MEDS: clonazePAM 1 MG TAB PO SCH (20:40)
[2016-11-18 06:21] VITALS: BP 120/62; PULSE 88; RESP 17; TEMP 97.8; O2SAT 95
[2016-11-18] MEDS: DOCUSATE SODIUM 100 MG CAP PO SCH ×2 (08:35→21:20)
[2016-11-18] MEDS: SERTRALINE HCL 50 MG TAB PO SCH (08:35)
[2016-11-18] MEDS: MAGNESIUM HYDROXIDE SUSP 30 ML CUP PO PRN (08:47)
--- NOTE | 2016-11-18 16:13 | HHI.PYPN ---
Subjective Remarks Patient was seen and case discussed nursing patient is pleasant and cooperative with exam. Mood remains depressed, psychomotor interrogation, blunted affect. He remains preoccupied with his bowel movements. Denies any pain. Denies suicidal ideation intent or plan. Sleep is intermittent at 4-5 hours. Objective Alert: Yes [place]: Person (ox4), Place Mood: Depressed Affect: Blunted Memory Intact: Comment (Not f ormally tetsted) Hallucinations: Other (Negative) Delusions: No Delusion Type: Other (denies) Suicidal: Ideation (denies any) Homicidal: Ideation (denies any) Insight/Judgment Poor Vitals/IOs Vital Signs Date Time Temp Pulse Resp B/P Pulse Ox O2 Delivery O2 Flow Rate FiO2 11/18/16 06:21 97.8 88 17 120/62 95 11/14/16 10:36 Room Air Assessment & Plan Problem List: (1) Major depressive disorder, recurrent, moderate ICD Code: F33.1 Assessment & Plan Continue current treatment plan Justification for Cont. Inpt. Patient would decompensate in a less restrictive setting Request HC Surrog/Guard Advoc?: No Twan Mcclellan DO Nov 18, 2016 16:13
[2016-11-18 17:00] VITALS: BP 105/60; PULSE 95; RESP 18; TEMP 97.4; O2SAT 95
[2016-11-18] MEDS: clonazePAM 1 MG TAB PO SCH (21:20)
[2016-11-18] MEDS: AMITRIPTYLINE HCL 25 MG TAB PO SCH (21:20)
[2016-11-18] MEDS: LITHIUM CARBONATE 300 MG TAB PO SCH (21:20)
[2016-11-19 05:51] VITALS: BP 113/74; PULSE 85; RESP 17; TEMP 97.9; O2SAT 95
[2016-11-19] MEDS: SERTRALINE HCL 50 MG TAB PO SCH (09:18)
[2016-11-19] MEDS: DOCUSATE SODIUM 100 MG CAP PO SCH ×2 (09:18→20:43)
--- NOTE | 2016-11-19 12:35 | HHI.PYPN ---
Subjective Remarks Patient was seen and case discussed with nursing. Patient is pleasant and cooperative with exam. Continues to be fixated on his bowel movements. Says he has not had any. Mood is "even." He is calm and collected during the interview. Thought process is logical and organized. Says his sleeping has improved but is still a challenge since he is on BiPAP at home area denies suicidal ideation intent or plan Objective Alert: Yes [place]: Person (ox4), Place Mood: Calm Affect: Blunted Memory Intact: Comment (Not f ormally tetsted) Hallucinations: Other (Negative) Delusions: No Delusion Type: Other (denies) Suicidal: Ideation (denies any) Homicidal: Ideation (denies any) Insight/Judgment Fair Vitals/IOs Vital Signs Date Time Temp Pulse Resp B/P Pulse Ox O2 Delivery O2 Flow Rate FiO2 11/19/16 05:51 97.9 85 17 113/74 95 Assessment & Plan Problem List: (1) Major depressive disorder, recurrent, moderate ICD Code: F33.1 Assessment & Plan Milk of magnesia when necessary constipation Justification for Cont. Inpt. Patient would decompensate in a less restrictive setting Request HC Surrog/Guard Advoc?: No Twan Mcclellan DO Nov 19, 2016 12:35
[2016-11-19] MEDS ORDERED: MAGNESIUM HYDROXIDE SUSP 30 ML CUP PO PRN (12:45)
[2016-11-19 16:58] VITALS: BP 114/66; PULSE 97; RESP 18; TEMP 98.1; O2SAT 98
[2016-11-19] MEDS: LITHIUM CARBONATE 300 MG TAB PO SCH (20:43)
[2016-11-19] MEDS: clonazePAM 1 MG TAB PO SCH (20:43)
[2016-11-19] MEDS: AMITRIPTYLINE HCL 25 MG TAB PO SCH (20:43)
[2016-11-20 05:31] VITALS: BP 135/78; PULSE 90; RESP 16; TEMP 98.1; O2SAT 97
[2016-11-20] MEDS: SERTRALINE HCL 50 MG TAB PO SCH (08:45)
[2016-11-20] MEDS: DOCUSATE SODIUM 100 MG CAP PO SCH ×2 (08:45→20:21)
--- NOTE | 2016-11-20 11:13 | PD.TTN ---
Present for Treatment Team Treatment Team Staff: Provider (Dr. Viera), Nurse (Sotero), Psych Therapist (JACOB Stern), Other Clinician (Laura, nicholas. therapy) Patient Problems 1. Discharge planning 2. Medication compliance 3. Knowledge deficit 4. Lack of coping skills Progress Toward Goals Provider Input: Dr. Viera requested an update regarding patient's mental status, medication compliance, and plan for discharge. Nurse Input: Nurse Sotero reported the patient remains fixated on his bowel movements. Per Sotero;s report, the patient is having bowel movements, yet he continues to report they are unsatisfactory to him. Patient is compliant with medications and in good behavioral control. Psych Therapist Input: Counselor reported the patient remains fixated on his bowel movements. Other Clinican Input: Laura reported the patient attends select group activities and presents with a blunted mood but pleasant. Documentation Scribe: JACOB Stern Date Resolved: Nov 20, 2016 Yodit Romero Nov 20, 2016 11:13
--- NOTE | 2016-11-20 15:30 | HHI.PYPN ---
Subjective Remarks Patient seen in [place] with nurse Sotero and medical students Eleni and Liana. Chart reviewed. Patient compliant medications. Patient walking with walker without difficulty. He is calm cooperative with me is somewhat guarded continues to focus on his constipation. Though. he is having at least some small bowel movement every day abdominal x-ray done on 731 showed mild left -sided constipation. It appears patient's mood is improving he denies suicidality homicidality voices or visions. For now continue treatment no change check lithium level over in a.m. consider discharge tomorrow Review of Systems Except as stated in HPI: all other systems reviewed are Neg Objective Alert: Yes [place]: Person (ox4), Place Mood: Calm Affect: Blunted Memory Intact: Comment (Not f ormally tetsted) Hallucinations: Other (Negative) Delusions: No Delusion Type: Other (denies) Suicidal: Ideation (denies any) Homicidal: Ideation (denies any) Insight/Judgment Poor Vitals/IOs Vital Signs Date Time Temp Pulse Resp B/P Pulse Ox O2 Delivery O2 Flow Rate FiO2 11/20/16 05:31 98.1 90 16 135/78 97 Assessment & Plan Problem List: (1) Major depressive disorder, recurrent, moderate ICD Code: F33.1 Assessment & Plan Estimated LOS: days patient's depression is lifting, denying suicidality homicidality voices or visions. Still focusing on his bowel movements though he does acknowledge small movements every day consider discharge tomorrow Justification for Cont. Inpt. Consider discharge tomorrow Discharge Planning To be determined Request HC Surrog/Guard Advoc?: No Deni Viera MD Nov 20, 2016 15:30
[2016-11-20 15:37] VITALS: BP 148/87; PULSE 88; RESP 20; TEMP 98.3; O2SAT 96
[2016-11-20] MEDS: clonazePAM 1 MG TAB PO SCH (20:21)
[2016-11-20] MEDS: LITHIUM CARBONATE 300 MG TAB PO SCH (20:21)
[2016-11-20] MEDS: AMITRIPTYLINE HCL 25 MG TAB PO SCH (20:21)
[2016-11-21 06:28] VITALS: BP 136/63; PULSE 87; RESP 16; TEMP 98; O2SAT 98
[2016-11-21] MEDS: DOCUSATE SODIUM 100 MG CAP PO SCH (09:24)
[2016-11-21] MEDS: SERTRALINE HCL 50 MG TAB PO SCH (09:25)
[2016-11-21] MEDS ORDERED: CLON1 PO (13:26)
[2016-11-21] MEDS ORDERED: LITH300T3 PO (13:26)
[2016-11-21] MEDS ORDERED: DOCU1CAP39 PO (13:26)
[2016-11-21] MEDS ORDERED: AMIT25TA9 PO (13:26)
[2016-11-21] MEDS ORDERED: ZOLO25TA PO (13:26)
--- NOTE | 2016-11-21 13:34 | HHI.DS ---
Psychiatry Discharge Summary Inpatient Psychiatric care?: Yes Advance Directive: No Reason Not Provided: refused Mental Health AdvanceDirective: No Health Care Proxy: No Admission Admission Date Nov 14, 2016 at 10:39 Admission Diagnosis: (1) Major depressive disorder, recurrent, moderate ICD Code: F33.1 (2) Constipation ICD Code: K59.00 Brief History Patient is a 71-year-old white male who comes her voluntarily complaining of depression with continued significant weight loss over the past month or so 50+ pounds. He feels the medication is not being successful. 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 He describes the feeling that insomnia with early a.m. awakening. A.m. anergy. Decreased energy. Decreased appetite with 50+ pound weight loss. There is decreased concentration and attention. He says his coping skills continue to remain satisfactory. He does deny voices or visions with this. Denies any alcohol or drug use with it. He does denies suicidality. He states he has had a trial of Cymbalta by his primary care physician going from 30-60 mg without significant response, he does complain primarily of the poor sleep stating he has been on Ambien and trazodone with little success. He states he said issue depression many years ago has been on Effexor and perhaps Zoloft. Patient lives with his and his only child an adult daughter whom he states has alcohol related issues. 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 He denies any physical or sexual abuse. Denies any mental illness in his family. At this time patient does meet criteria for involuntary inpatient psychiatric hospitalization to adjust medications and a moderately responses we will increase his at bedtime trazodone 150 mg. We will discontinue the at bedtime Ambien and had 1 mg of Klonopin at at bedtime. We will also add Zoloft at 25 mg daily. Hopeless with fairly short stay and we can referral through to mental health services in the community Tobacco Use In Past 30 Days: 5 or More Cigarettes/Day Alcohol Use: Never Hospital Course Patient's mood improved with the milieu and the medication, however his mood is also influenced by his chronic constipation. Though he did have small bowel movements every day he stated they were quite difficult at times needed some digital assistance. However patient denies suicidality homicidality voices or visions. He has had good communication with his . He does her primary care physician. We discussed treatment today with patient along with medical student Liana. He does agree with discharged today will refer patient to when about sources of the community younger [employer], [employer], or [employer]. Patient also follow-up with his PCP this week for further treatment of his chronic constipation Results Blood Pressure 136 / 63 Vital Signs Date Time Temp Pulse Resp B/P Pulse Ox O2 Delivery O2 Flow Rate FiO2 11/21/16 06:28 98.0 87 16 136/63 98 Laboratory Tests Test 11/21/16 07:30 [place] Level 0.3 MEQ/L (0.5-1.5) Laboratory Results Test 11/21/16 07:30 [place] Level 0.3 MEQ/L (0.5-1.5) Summary of Procedures None done Imaging Last Impressions Abdomen X-Ray 11/13/16 0000 Signed Impressions: Service Date/Time: Sunday, November 13, 2016 18:42 - CONCLUSION: Mild left-sided constipation and a few mildly dilated loops of small bowel in the left epigastric region. Eh Yoon MD Pending results at discharge: No Medications # of Antipsychotic meds at D/C: 0 Approp Antipsych med options 1 - Minimum of three failed multiple trials of monotherapy. 2 - Documented plan to taper to monotherapy due to previous use of multiple meds OR cross-taper in progress at D/C. 3 - Documentation of augmentation of Clozapine. 4 - Justification other than those listed in allowable values 1-3, document here : Discharge Discharge Date: Nov 21, 2016 Discharge Diagnosis: (1) Major depressive disorder, recurrent, moderate Diagnosis: Principal ICD Code: F33.1 (2) Constipation Diagnosis: Secondary ICD Code: K59.00 Mental Status Exam at Disch Alert oriented white male calm quiet, is normal active. There is mood is euthymic to somewhat restricted with decreased range and intensity of his affect. Speech rate and rhythm is slow but goal oriented there no formal thought disorders. No auditory or visual hallucinations. No delusions. Insight and judgment is fair. Cognition grossly intact Pt Condition on Discharge: Stable Discharge Disposition: Discharge Home Discharge Instructions Diet Instructions: As Tolerated, No Restrictions Activities you can perform: Regular-No Restrictions Scheduled Appointment: poor insurance policy follow-up [facility] or [employer] or [place] Discharge Time > 30 minutes Discharge/Advance Care Plan Health Problems: (1) Major depressive disorder, recurrent, moderate Goals to promote your health * To prevent worsening of your condition and complications * To maintain your health at the optimal level Directions to meet your goals Take your medications as prescribed Follow your dietary instruction Follow activity as directed Keep your appointments as scheduled Take your immunizations and boosters as scheduled If your symptoms worsen call your PCP, if no PCP go to Urgent Care Center or Emergency Room For 06/11 questions related to your inpatient stay or results of tests pending at discharge, please contact Dr. Deni Viera at Smoking is Dangerous to Your Health. Avoid second hand smoking Problem Qualifiers (1) Constipation: Qualified Code: K59.00 - Constipation, unspecified constipation type Deni Viera MD Nov 21, 2016 13:34
== END 2016-11-21 16:15 | disposition home or self-care (01) | DRG 885 ==
LOC: NEPC 17:18 → NEDA 11-14 10:39 → H260 11-14 11:40
PROVIDERS: ADMIT Psychiatry & Neurology Psychiatry; ATTEND Psychiatry & Neurology Psychiatry
DX: F33.1 Major depressive disorder, recurrent, moderate (principal); E87.1 Hypo-osmolality and hyponatremia; G62.9 Polyneuropathy, unspecified; E78.5 Hyperlipidemia, unspecified; K59.01 Slow transit constipation; G47.00 Insomnia, unspecified; R00.0 Tachycardia, unspecified; R79.89 Other specified abnormal findings of blood chemistry; Z85.820 Personal history of malignant melanoma of skin; Z88.2 Allergy status to sulfonamides
CPT/HCPCS: 74020; 80048; 80053; 80061; 80178; 80307; 81001; 82247; 82248; 83036; 84443; 85025; 93005; J7030

== ENCOUNTER 2017-08-07 09:36 | Emergency (ER) | payer MEDICARE ==
[~2017-08-07] VITALS: Ht 193 cm; Wt 86.0 kg
[~2017-08-07 09:36] MED LIST changes: +AMIT25TA9 PO; -ATOR40TA16 PO; +CLON1 PO; -DULO1CAP2 PO; -LACT PO; +LITH300T3 PO; -Lactulose Liq PO; -PRAM0.12 PO; +TRAZ100T10 PO; -TRAZ100T6 PO; +ZOLO25TA PO
[2017-08-07 09:56] VITALS: BP 98/65; PULSE 108; RESP 20; TEMP 98.5; O2SAT 94
[2017-08-07] MEDS ORDERED: BISACODYL 10 MG SUPP RECTAL ONE (10:30)
--- NOTE | 2017-08-07 10:31 | PD ---
HPI Chief Complaint: Abdominal Pain Time Seen by Provider: 10:13 Travel History International Travel<30 days: No Contact w/Intl Traveler<30days: No Traveled to known affect area: No History of Present Illness HPI 71-year-old male is concerned that he is constipated. He says he has not had a bowel movement for about 2 weeks. Does have a history of depression. He does not eat very much. He is not active. He has generalized weakness. He has been evaluated for weight loss in the past. He continues to lose weight. He does have depression and is on medication for that. He uses a stool softener daily. He has used GoLYTELY. He says that in the past fleets enema has been most successful for him PFSH Past Medical History Anxiety: Yes Depression: Yes Cancer: No (per pt) Cardiovascular Problems: No (per pt) High Cholesterol: Yes Diabetes: No (per pt) Diminished Hearing: No Endocrine: No Gastrointestinal Disorders: Yes (Loss of appetite/ weight loss) Genitourinary: No Headaches: No (per pt) Immune Disorder: No Medical other: Yes (Neuropathy) Musculoskeletal: Yes (RLS) Psychiatric: Yes (depression) Reproductive: No Respiratory: No Seizures: No (per pt) Influenza Vaccination: Yes ?: Not Past Surgical History Other Surgery: Yes (lipoma removed) Social History Alcohol Use: No Tobacco Use: No Substance Use: No Allergies-Medications (Allergen,Severity, Reaction): Coded Allergies: Sulfa (Sulfonamide Antibiotics) (Unverified Allergy, Intermediate, vomiting, 08/07/17) Reported Meds & Prescriptions Reported Meds & Active Scripts Active Zoloft (Sertraline HCl) 25 Mg Tab 25 Mg PO DAILY [place] Carbonate 300 Mg Tab 300 Mg PO HS Dok (Docusate Sodium) 100 Mg Cap 100 Mg PO BID Klonopin (Clonazepam) 1 Mg Tab 1 Mg PO HS Amitriptyline (Amitriptyline HCl) 25 Mg Tab 25 Mg PO HS Dok (Docusate Sodium) 100 Mg Cap 100 Mg PO BID Reported Lorazepam 1 Mg Tab 1 Mg PO Q8H PRN Zolpidem (Zolpidem Tartrate) 10 Mg Tab 10 Mg PO HS Trazodone (Trazodone HCl) 100 Mg Tablet 100 Mg PO HS Review of Systems General / Constitutional: No: Fever, Chills Eyes: No: Diploplia HENT: No: Headaches Cardiovascular: No: Chest Pain or Discomfort, Palpitations Respiratory: No: Cough, Shortness of Breath Gastrointestinal: Positive: Abdominal Pain, Constipation Genitourinary: No: Urgency, Frequency Musculoskeletal: No: Myalgias Skin: No Rash Neurologic: No: Weakness Hematologic/Lymphatic: No: Easy Bruising Physical Exam Narrative GENERAL: Well-developed male SKIN: Focused skin assessment warm/dry. HEAD: Atraumatic. Normocephalic. EYES: Pupils equal and round. No scleral icterus. No injection or drainage. ENT: No nasal bleeding or discharge. Mucous membranes pink and moist. NECK: Trachea midline. No JVD. CARDIOVASCULAR: Regular rate and rhythm. No murmur appreciated. RESPIRATORY: No accessory muscle use. Clear to auscultation. Breath sounds equal bilaterally. GASTROINTESTINAL: Abdomen soft, non-tender, nondistended. Hepatic and splenic margins not palpable. On rectal exam there is stool present which is firm MUSCULOSKELETAL: No obvious deformities. No clubbing. No cyanosis. No edema. NEUROLOGICAL: Awake and alert. No obvious cranial nerve deficits. Motor grossly within normal limits. Normal speech. PSYCHIATRIC: Depressed mood and affect; insight and judgment normal. Data Data Last Documented VS Vital Signs Date Time Temp Pulse Resp B/P (MAP) Pulse Ox O2 Delivery O2 Flow Rate FiO2 08/07/17 09:56 98.5 108 20 98/65 (76) 94 Orders Orders Urinalysis - C+S If Indicated (08/07/17 09:51) Bisacodyl Supp (Dulcolax Supp) (08/07/17 10:30) Abdomen, Kub Only (08/07/17 10:28) Fleets Enema (Adult) (Fleets Enema (Adul (08/07/17 11:00) MDM Medical Decision Making Medical Screen Exam Complete: Yes Emergency Medical Condition: Yes Medical Record Reviewed: Yes Differential Diagnosis Differential includes constipation Narrative Course X-ray does show large amount of stool present. Patient has been using stool softeners and used a whole bottle of GoLYTELY. He says that fleets has helped him in the past. I will order a fleets enema. Fleets is been done and did produce some stool though he does have residual stool. I will recommend that he use GoLYTELY again. Be released Diagnosis Primary Impression: Constipation Scripts Peg-Electrolytes (Golytely 236 gm) 4,000 Ml Soln 4000 ML PO ONCE for Bowel Cleanser, #1 CONTAINER 0 Refills Prov: Polo Chairez MD 08/07/17 Disposition: 01 DISCHARGE HOME Condition: Stable Polo Chairez MD Aug 07, 2017 10:31
--- NOTE | 2017-08-07 10:54 | RADRPT ---
EXAM DATE/TIME: 08/07/2017 10:31 [facility] COMPARISON: ABDOMEN KUB ONLY, October 31, 2016, 13:54. INDICATIONS : Constipation & abdominal pain x 2 weeks. MEDICAL HISTORY : Hypercholesterolemia. Diabetic. SURGICAL HISTORY : None. ENCOUNTER: Initial ACUITY: 2 weeks PAIN SCORE: 4/10 LOCATION: Bilateral abdomen FINDINGS: 2 AP spot views of the abdomen. Prominent amount of stool in the ascending colon and transverse colon . Scattered gas in the nondilated colon. Scattered gas in nondilated loops of small bowel. Phlebolith s in the pelvis. CONCLUSION: Prominent amount of stool in the proximal colon. Question constipation. Morgan Steinberg MD on August 07, 2017 at 10:50 Board Certified Radiologist. This report was verified electronically.
[2017-08-07] MEDS ORDERED: SOD PHOSPHATE/SOD BIPHOSPHATE (ADULT) ENEMA 133ML RECTAL ONE (11:00)
[2017-08-07] MEDS ORDERED: COLY4000S PO (12:08)
[2017-08-07 12:15] VITALS: BP 104/66; PULSE 100; RESP 18; O2SAT 99
== END 2017-08-07 12:49 | disposition home or self-care (01) ==
LOC: PHED 09:36
DX: K59.00 Constipation, unspecified (principal); F32.9 Major depressive disorder, single episode, unspecified
CPT/HCPCS: 74018; 99283

== ENCOUNTER 2017-08-16 20:05 | Emergency (ER) | payer MEDICARE ==
[~2017-08-16] VITALS: Ht 193 cm; Wt 85.6 kg
[~2017-08-16 20:05] MED LIST changes: +COLY4000S PO
[2017-08-16 20:13] VITALS: BP 114/58; PULSE 73; RESP 16; TEMP 99.1; O2SAT 97
--- NOTE | 2017-08-16 20:55 | PD ---
HPI Chief Complaint: Complaint Time Seen by Provider: 20:37 Travel History International Travel<30 days: No Contact w/Intl Traveler<30days: No Traveled to known affect area: No History of Present Illness HPI Patient 71-year-old male presents emergency department with decreased urination for the past 24-48 hours. Patient recently in this institution for constipation was discharged on GoLYTELY he states his been having very runny diarrhea. States she is having difficulty passing urine, states he can get his stream started but it lasts only for a few drops and then stopped. Denies any burning or painful urination. Denies any abdominal pain abdominal fullness blood in the stool or blood in the urine. States symptoms are moderate, context and associated signs symptoms as above, gradually worsening PFSH Past Medical History Anxiety: Yes Depression: Yes Cancer: No (per pt) High Cholesterol: Yes Diabetes: No (per pt) Diminished Hearing: No Endocrine: No Gastrointestinal Disorders: Yes (Loss of appetite/ weight loss) Genitourinary: No Headaches: No (per pt) Immune Disorder: No Musculoskeletal: Yes (RLS) Neurologic: Yes (NEUROPATHY BILAT LOWER EXT.) Psychiatric: Yes (depression) Reproductive: No Respiratory: No Seizures: No (per pt) Tetanus Vaccination: Unknown Influenza Vaccination: Yes Past Surgical History Other Surgery: Yes (lipoma removed) Social History Alcohol Use: No Tobacco Use: No Substance Use: No Allergies-Medications (Allergen,Severity, Reaction): Coded Allergies: Sulfa (Sulfonamide Antibiotics) (Unverified Allergy, Intermediate, vomiting, 08/16/17) Reported Meds & Prescriptions Reported Meds & Active Scripts Active Flomax (Tamsulosin HCl) 0.4 Mg Cap 0.4 Mg PO HS Zoloft (Sertraline HCl) 25 Mg Tab 25 Mg PO DAILY Klonopin (Clonazepam) 1 Mg Tab 1 Mg PO HS Amitriptyline (Amitriptyline HCl) 25 Mg Tab 25 Mg PO HS Dok (Docusate Sodium) 100 Mg Cap 100 Mg PO BID Review of Systems Except as stated in HPI: all other systems reviewed are Neg Physical Exam Narrative GENERAL: Well-developed well-nourished no obvious SKIN: Focused skin assessment warm/dry. HEAD: Atraumatic. Normocephalic. EYES: Pupils equal and round. No scleral icterus. No injection or drainage. ENT: No nasal bleeding or discharge. Mucous membranes pink and moist. NECK: Trachea midline. No JVD. CARDIOVASCULAR: Regular rate and rhythm. No murmur appreciated. RESPIRATORY: No accessory muscle use. Clear to auscultation. Breath sounds equal bilaterally. GASTROINTESTINAL: Abdomen soft, non-tender, nondistended. Hepatic and splenic margins not palpable. No rebound no percussive tenderness, no CVA tenderness, MUSCULOSKELETAL: No obvious deformities. No clubbing. No cyanosis. No edema. No midline CT or L-spine tenderness. NEUROLOGICAL: Awake and alert. No obvious cranial nerve deficits. Motor grossly within normal limits. Normal speech. PSYCHIATRIC: Appropriate mood and affect; insight and judgment normal. Data Data Last Documented VS Vital Signs Date Time Temp Pulse Resp B/P (MAP) Pulse Ox O2 Delivery O2 Flow Rate FiO2 08/16/17 22:45 82 18 97 08/16/17 22:44 Room Air 08/16/17 20:13 99.1 Orders Orders Urinary Catheter Insert/Apply (08/16/17 20:46) Basic Metabolic Panel (Bmp) (08/16/17 20:46) Complete Blood Count With Diff (08/16/17 20:46) Urinalysis - C+S If Indicated (08/16/17 20:46) Iv Access Insert/Monitor (08/16/17 20:46) Sodium Chloride 0.9% Flush (Ns Flush) (08/16/17 21:00) Ed Discharge Order (08/16/17 21:41) Labs Laboratory Tests Test 08/16/17 21:00 White Blood Count 4.4 TH/MM3 Red Blood Count 4.58 MIL/MM3 Hemoglobin 13.7 GM/DL Hematocrit 41.2 % Mean Corpuscular Volume 89.9 FL Mean Corpuscular Hemoglobin 30.0 PG Mean Corpuscular Hemoglobin Concent 33.3 % Red Cell Distribution Width 13.0 % Platelet Count 169 TH/MM3 Mean Platelet Volume 8.1 FL Neutrophils (%) (Auto) 72.5 % Lymphocytes (%) (Auto) 15.9 % Monocytes (%) (Auto) 11.0 % Eosinophils (%) (Auto) 0.1 % Basophils (%) (Auto) 0.5 % Neutrophils # (Auto) 3.2 TH/MM3 Lymphocytes # (Auto) 0.7 TH/MM3 Monocytes # (Auto) 0.5 TH/MM3 Eosinophils # (Auto) 0.0 TH/MM3 Basophils # (Auto) 0.0 TH/MM3 CBC Comment DIFF FINAL Differential Comment Urine Color YELLOW Urine Turbidity CLEAR Urine pH 6.5 Urine Specific [place] 1.020 Urine Protein NEG mg/dL Urine Glucose (UA) NEG mg/dL Urine Ketones NEG mg/dL Urine Occult Blood NEG Urine Nitrite NEG Urine Bilirubin NEG Urine Urobilinogen 0.2 MG/DL Urine Leukocyte Esterase NEG Urine RBC 0-3 /hpf Urine WBC 0-2 /hpf Urine Squamous Epithelial Cells 0-5 /hpf Urine Amorphous Sediment FEW Urine Mucus MOD /lpf Microscopic Urinalysis Comment CULT NOT INDICATED Blood Urea Nitrogen 14 MG/DL Creatinine 0.77 MG/DL Random Glucose 81 MG/DL Calcium Level 9.3 MG/DL Sodium Level 135 MEQ/L Potassium Level 4.0 MEQ/L Chloride Level 102 MEQ/L Carbon Dioxide Level 27.5 MEQ/L Anion Gap 6 MEQ/L Estimat Glomerular Filtration Rate 100 ML/MIN MDM Medical Decision Making Medical Screen Exam Complete: Yes Emergency Medical Condition: Yes Differential Diagnosis Urinary retention, acute kidney injury, dehydration, electrolyte abnormality Narrative Course Patient room to the emergency department, Grant catheter was placed that yielded close to 700 cc of urine. UA was negative, CBC and CMP were reassuring. On reassessment patient states he is feeling better, he then related a history that for the past month he has been feeling generally weak and has had to rely heavily on his daughter's care. When asked him if he discussed this with his regular physician he states no. At this time I have no medical reason for admission to the hospital, discussed that if he is getting to the point where he thinks he is becoming a burden on his family he should speak with his regular physician about admitting him to a prison. At this time is stable for discharge and has safe discharge and his daughter is taken home. Subjective urinary retention, Grant catheter remained in place, discussed need follow-up with a urologist for prostate examination and further workup, Flomax risk benefits complications and alternatives were discussed with him, Diagnosis Primary Impression: Urinary retention Additional Instructions: Follow up with Dr. Zimmerman for a prostate checkup. Recommend follow up within one week. Grant catheter should come out in 7-10 days. You should do this with Dr. Zimmerman but you can return to the ER as well. Med/Other Pt SpecificInfo: Prescription(s) given Scripts Tamsulosin (Flomax) 0.4 Mg Cap 0.4 MG PO HS for Manage Prostate Problems, #30 CAP 0 Refills Prov: Ashwin Valdez MD 08/16/17 Disposition: 01 DISCHARGE HOME Condition: Stable Ashwin Valdez MD August 16, 2017 20:55
[2017-08-16] MEDS ORDERED: SODIUM CHLORIDE 0.9% FLUSH 10 ML FLUSH IV FLUSH PRN (21:00)
[2017-08-16 21:18] LABS: AUTOMATED NEUTROPHIL # 3.2 TH/MM3 (1.8-7.7); BASOPHIL % 0.5 % (0.0-2.0); EOSINOPHIL % 0.1 % (0.0-4.0); HEMATOCRIT 41.2 % (39.0-51.0); HEMOGLOBIN 13.7 GM/DL (13.0-17.0); LYMPH % 15.9 % (9.0-44.0); LYMPHOCYTE # 0.7 TH/MM3 (1.0-4.8); MEAN CELL VOLUME 89.9 FL (80.0-100.0); MEAN CORPUSCULAR HGB CONC 33.3 % (32.0-36.0); MEAN PLATELET VOLUME 8.1 FL (7.0-11.0); MONOCYTE # 0.5 TH/MM3 (0-0.9); NEUT % 72.5 % (16.0-70.0); PLATELET COUNT 169 TH/MM3 (150-450); RED BLOOD COUNT 4.58 MIL/MM3 (4.50-5.90); WHITE BLOOD COUNT 4.4 TH/MM3 (4.0-11.0)
[2017-08-16 21:23] LABS: BILIRUBIN, URINE NEG (NEG); BLOOD, URINE NEG (NEG); GLUCOSE,URINE NEG (NEG); KETONE, URINE NEG (NEG); NITRITE,URINE NEG (NEG); PH, URINE 6.5 (5.0-8.5); URINE COLOR YELLOW (YELLW/STRAW); URINE LEUKOCYTE ESTERASE NEG (NEG)
[2017-08-16 21:29] LABS: AMORPHOUS SEDIMENT, URINE FEW; MUCUS URINE MOD /lpf (OCC); RBC, URINE 0-3 /hpf (0-3); SQUAMOUS EPITHELIAL CELL URINE 0-5 /hpf (0-5); WBC, URINE 0-2 /hpf (0-5)
[2017-08-16 21:31] LABS: CALCIUM 9.3 MG/DL (8.5-10.1)
[2017-08-16 21:32] LABS: BICARBONATE 27.5 MEQ/L (21.0-32.0)
[2017-08-16 21:35] LABS: CREATININE 0.77 MG/DL (0.60-1.30)
[2017-08-16] MEDS ORDERED: TAMS5CAP PO (21:42)
[2017-08-16 22:44] VITALS: BP 121/60; PULSE 84; RESP 18; O2SAT 97
== END 2017-08-16 22:47 | disposition home or self-care (01) ==
LOC: PHED 20:05
DX: R33.9 Retention of urine, unspecified (principal); R19.7 Diarrhea, unspecified; F41.9 Anxiety disorder, unspecified; F32.9 Major depressive disorder, single episode, unspecified; E78.00 Pure hypercholesterolemia, unspecified; G25.81 Restless legs syndrome; G62.9 Polyneuropathy, unspecified; Z79.899 Other long term (current) drug therapy
CPT/HCPCS: 51702; 80048; 81001; 85025

== ENCOUNTER 2017-08-31 15:05 | Emergency (ER) | payer MEDICARE ==
[~2017-08-31] VITALS: Ht 193 cm; Wt 85.0 kg
[~2017-08-31 15:05] MED LIST changes: -COLY4000S PO; -LITH300T3 PO; -LORA1TAB12 PO; +TAMS5CAP PO; -TRAZ100T10 PO; -ZOLP10TA3 PO
[2017-08-31 15:36] VITALS: BP 120/74; PULSE 106; RESP 18; TEMP 97.7; O2SAT 97
[2017-08-31] MEDS ORDERED: SODIUM CHLORIDE 0.9% FLUSH 10 ML FLUSH IV FLUSH PRN (20:15)
[2017-08-31] MEDS ORDERED: MIRA3350 PO (20:21)
--- NOTE | 2017-08-31 20:21 | PD ---
HPI Chief Complaint: Flank/Kidney Pain Time Seen by Provider: 19:56 Travel History International Travel<30 days: No Contact w/Intl Traveler<30days: No Traveled to known affect area: No History of Present Illness HPI 71-year-old male here for evaluation of dysuria, inability to urinate, lower abdominal/suprapubic pain, diarrhea. The patient presented to [place] emergency department on 08/16/17 and was diagnosed with urinary retention, discharged home with a Grant catheter. This was removed 2 days ago. Initially he was able to urinate, however he has not been able to urinate all day today. Lower abdominal pain described as cramping. He has had several episodes of loose bowel movements and states that he is taking laxatives. No vomiting. No fevers. PFSH Past Medical History Anxiety: Yes Depression: Yes Cancer: No (per pt) High Cholesterol: Yes Diabetes: No (per pt) Diminished Hearing: No Endocrine: No Gastrointestinal Disorders: Yes (Loss of appetite/ weight loss) Genitourinary: No Headaches: No (per pt) Immune Disorder: No Musculoskeletal: Yes (RLS) Neurologic: Yes (NEUROPATHY BILAT LOWER EXT.) Psychiatric: Yes (depression) Reproductive: No Respiratory: No Seizures: No (per pt) Past Surgical History Other Surgery: Yes (lipoma removed) Social History Alcohol Use: No Tobacco Use: No Substance Use: No Allergies-Medications (Allergen,Severity, Reaction): Coded Allergies: Sulfa (Sulfonamide Antibiotics) (Unverified Allergy, Intermediate, vomiting, 08/31/17) Reported Meds & Prescriptions Reported Meds & Active Scripts Active Flomax (Tamsulosin HCl) 0.4 Mg Cap 0.4 Mg PO HS Zoloft (Sertraline HCl) 25 Mg Tab 25 Mg PO DAILY Klonopin (Clonazepam) 1 Mg Tab 1 Mg PO HS Amitriptyline (Amitriptyline HCl) 25 Mg Tab 25 Mg PO HS Dok (Docusate Sodium) 100 Mg Cap 100 Mg PO BID Reported Miralax Powder (Polyethylene Glycol 3350 Powder) 17 Gm Powd Gm PO DAILY Mix and dissolve one measuring cap-ful (17 grams) in water or juice. Review of Systems Except as stated in HPI: all other systems reviewed are Neg Physical Exam Narrative GENERAL: Well-developed, well-nourished, awake, alert, no apparent distress, diffuse resting tremors. SKIN: Focused skin assessment warm/dry. HEAD: Atraumatic. Normocephalic. EYES: Pupils equal and round. No scleral icterus. No injection or drainage. ENT: No nasal bleeding or discharge. Mucous membranes pink and moist. NECK: Trachea midline. No JVD. CARDIOVASCULAR: Regular rate and rhythm. No murmur appreciated. RESPIRATORY: No accessory muscle use. Clear to auscultation. Breath sounds equal bilaterally. GASTROINTESTINAL: Abdomen soft, nondistended. Mild suprapubic, right lower quadrant, and left lower quadrant tenderness without peritoneal signs. No hernias. Normal bowel sounds. : Within normal limits without swelling or masses, no tenderness. MUSCULOSKELETAL: No obvious deformities. No clubbing. No cyanosis. No edema. NEUROLOGICAL: Awake and alert. No obvious cranial nerve deficits. Motor grossly within normal limits. Normal speech. PSYCHIATRIC: Appropriate mood and affect; insight and judgment normal. Data Data Last Documented VS Vital Signs Date Time Temp Pulse Resp B/P (MAP) Pulse Ox O2 Delivery O2 Flow Rate FiO2 08/31/17 15:36 97.7 106 18 120/74 (89) 97 Orders Orders Complete Blood Count With Diff (08/31/17 20:09) Comprehensive Metabolic Panel (08/31/17 20:09) Prothrombin Time / Inr (Pt) (08/31/17 20:09) Act Partial Throm Time (Ptt) (08/31/17 20:09) Urinalysis - C+S If Indicated (08/31/17 20:09) Iv Access Insert/Monitor (08/31/17 20:09) Ecg Monitoring (08/31/17 20:09) Oximetry (08/31/17 20:09) Sodium Chloride 0.9% Flush (Ns Flush) (08/31/17 20:15) Urinary Catheter Insert/Apply (08/31/17 20:09) Ct Abd/Pel W Iv Contrast(Rout) (08/31/17 20:14) Urine Culture (08/31/17 20:30) Ceftriaxone Inj (Rocephin Inj) (08/31/17 21:30) Iohexol 350 Inj (Omnipaque 350 Inj) (08/31/17 23:03) Ciprofloxacin (Cipro) (08/31/17 23:30) Labs Laboratory Tests Test 08/31/17 20:30 White Blood Count 6.4 TH/MM3 Red Blood Count 4.66 MIL/MM3 Hemoglobin 14.2 GM/DL Hematocrit 41.7 % Mean Corpuscular Volume 89.6 FL Mean Corpuscular Hemoglobin 30.5 PG Mean Corpuscular Hemoglobin Concent 34.1 % Red Cell Distribution Width 14.3 % Platelet Count 184 TH/MM3 Mean Platelet Volume 8.1 FL Neutrophils (%) (Auto) 82.6 % Lymphocytes (%) (Auto) 7.3 % Monocytes (%) (Auto) 9.8 % Eosinophils (%) (Auto) 0.0 % Basophils (%) (Auto) 0.3 % Neutrophils # (Auto) 5.3 TH/MM3 Lymphocytes # (Auto) 0.5 TH/MM3 Monocytes # (Auto) 0.6 TH/MM3 Eosinophils # (Auto) 0.0 TH/MM3 Basophils # (Auto) 0.0 TH/MM3 CBC Comment DIFF FINAL Differential Comment Prothrombin Time 10.3 SEC Prothromb Time International Ratio 1.0 RATIO Activated Partial Thromboplast Time 24.8 SEC Urine Color YELLOW Urine Turbidity HAZY Urine pH 6.0 Urine Specific [place] 1.022 Urine Protein 30 mg/dL Urine Glucose (UA) NEG mg/dL Urine Ketones NEG mg/dL Urine Occult Blood MOD Urine Nitrite NEG Urine Bilirubin NEG Urine Urobilinogen LESS THAN 2.0 MG/DL Urine Leukocyte Esterase LARGE Urine RBC 29 /hpf Urine WBC /hpf Urine Bacteria MANY /hpf Microscopic Urinalysis Comment CATH-CULTURE IND Blood Urea Nitrogen 14 MG/DL Creatinine 0.82 MG/DL Random Glucose 87 MG/DL Total Protein 6.9 GM/DL Albumin 3.9 GM/DL Calcium Level 9.5 MG/DL Alkaline Phosphatase 51 U/L Aspartate Amino Transf (AST/SGOT) 13 U/L Alanine Aminotransferase (ALT/SGPT) 13 U/L Total Bilirubin 0.4 MG/DL Sodium Level 135 MEQ/L Potassium Level 4.7 MEQ/L Chloride Level 100 MEQ/L Carbon Dioxide Level 25.4 MEQ/L Anion Gap 10 MEQ/L Estimat Glomerular Filtration Rate 93 ML/MIN [facility] Medical Decision Making Medical Screen Exam Complete: Yes Emergency Medical Condition: Yes Differential Diagnosis Urinary retention, UTI, cystitis, prostatitis, colitis, diverticulitis Narrative Course Bedside transabdominal ultrasound using a curvilinear ultrasound probe shows a full bladder. Just before the nurse was about to put in a Grant catheter, the patient was able to urinate about 250 cc of urine. Vital signs reviewed. CBC: WBC 6.4, hemoglobin 14.2, hematocrit 41.7, platelets 184, neutrophils 83%. CMP is unremarkable. UA is suggestive of UTI with moderate occult blood, large leukocyte esterase, 29 RBCs, innumerable WBCs, many bacteria. CT abdomen pelvis: CONCLUSION: 1. Bladder wall thickening with some stranding around the bladder which may be characteristic of a cystitis. No abscess. 2. Remote granulomatous disease. Advanced degenerative change of the spine. The patient was given 1 g of IV Rocephin. Both the patient and the patient's significant other were made aware of all findings. Patient is resting comfortably. He is having dysuria and increased urinary frequency. He is able to urinate and does not appear to be in urinary retention. He was given 1 g of IV Rocephin and will be started on Cipro. He was advised to follow-up with his primary care physician or his urologist Dr. Zimmerman in the next 3 days. He is stable for discharge home with outpatient follow-up. He was advised on when to return to the emergency department. He verbalizes understanding and agreement with plan. Procedures Procedure Narrative Bedside transabdominal ultrasound: Using the curvilinear ultrasound probe, a bedside ultrasound was performed by me and shows a full/distended bladder. Diagnosis Primary Impression: UTI (urinary tract infection) Qualified Codes: N30.01 - Acute cystitis with hematuria Referrals: Ganesh Zimmerman MD 3 days Primary Care Physician 3 days Additional Instructions: Follow-up with your primary care physician this week. Follow-up with your urologist this week. Take antibiotic as prescribed. Return to the emergency department for worsening symptoms or any other concerns. Scripts Ciprofloxacin (Cipro) 500 Mg Tab 500 MG PO BID for Infection for 14 Days, #28 TAB 0 Refills Prov: Marty Krueger MD 08/31/17 Disposition: 01 DISCHARGE HOME Condition: Stable Marty Krueger MD August 31, 2017 20:21
[2017-08-31 20:55] LABS: AUTOMATED NEUTROPHIL # 5.3 TH/MM3 (1.8-7.7); BASOPHIL % 0.3 % (0.0-2.0); HEMATOCRIT 41.7 % (39.0-51.0); HEMOGLOBIN 14.2 GM/DL (13.0-17.0); LYMPH % 7.3 % (9.0-44.0); LYMPHOCYTE # 0.5 TH/MM3 (1.0-4.8); MEAN CELL VOLUME 89.6 FL (80.0-100.0); MEAN CORPUSCULAR HEMOGLOBIN 30.5 PG (27.0-34.0); MEAN CORPUSCULAR HGB CONC 34.1 % (32.0-36.0); MEAN PLATELET VOLUME 8.1 FL (7.0-11.0); MONO % 9.8 % (0.0-8.0); MONOCYTE # 0.6 TH/MM3 (0-0.9); NEUT % 82.6 % (16.0-70.0); PLATELET COUNT 184 TH/MM3 (150-450); RED BLOOD COUNT 4.66 MIL/MM3 (4.50-5.90); RED CELL DISTRIBUTION WIDTH 14.3 % (11.6-17.2); WHITE BLOOD COUNT 6.4 TH/MM3 (4.0-11.0)
[2017-08-31 21:00] LABS: BACTERIA, URINE MANY /hpf; BILIRUBIN, URINE NEG (NEG); BLOOD, URINE MOD (NEG); GLUCOSE,URINE NEG (NEG); KETONE, URINE NEG (NEG); NITRITE,URINE NEG (NEG); URINE COLOR YELLOW (YELLW/STRAW); URINE LEUKOCYTE ESTERASE LARGE (NEG)
[2017-08-31 21:12] LABS: PROTHROMBIN TIME - PATIENT 10.3 SEC (9.8-11.6)
[2017-08-31 21:13] LABS: ALBUMIN 3.9 GM/DL (3.4-5.0); AST (GOT) 13 U/L (15-37); BICARBONATE 25.4 MEQ/L (21.0-32.0); BLOOD UREA NITROGEN 14 MG/DL (7-18); CALCIUM 9.5 MG/DL (8.5-10.1); CHLORIDE 100 MEQ/L (98-107); CREATININE 0.82 MG/DL (0.60-1.30); GLOMERULAR FILTRATION RATE 93 ML/MIN (>89); GLUCOSE,RANDOM 87 MG/DL (74-106); SODIUM (NA) 135 MEQ/L (136-145)
[2017-08-31 21:18] LABS: ALKALINE PHOSPHATASE 51 U/L (45-117); ALT (GPT) 13 U/L (12-78); TOTAL BILIRUBIN ADULT 0.4 MG/DL (0.2-1.0); TOTAL PROTEIN 6.9 GM/DL (6.4-8.2)
[2017-08-31] MEDS ORDERED: cefTRIAXone INJ 1,000 MG in SODIUM CHLORIDE 0.9% INJ 100 ML IV ONE (21:30)
[2017-08-31] MEDS ORDERED: IOHEXOL 350 MG/ML 10 ML VIAL (for RAD DIAG) IVCONTRAST ONE (23:03)
--- NOTE | 2017-08-31 23:11 | RADRPT ---
EXAM DATE/TIME: 08/31/2017 22:43 [place] COMPARISON: No previous studies available for comparison. INDICATIONS : Abdominal pain and constipation. Patient had indwelling catheter removed recently and also complains of painful urination. IV CONTRAST: 97 cc Omnipaque 350 (iohexol) IV ORAL CONTRAST: No oral contrast ingested. RADIATION DOSE: 7.37 CTDIvol (mGy) MEDICAL HISTORY : Cardiovascular disease. Seizures. Diabetes mellitus type 2.Neuropathy SURGICAL HISTORY : None. ENCOUNTER: Initial ACUITY: 2 days PAIN SCALE: 7/10 LOCATION: abdomen TECHNIQUE: Volumetric scanning of the abdomen and pelvis was performed. Using automated exposure control and ad justment of the mA and/or kV according to patient size, radiation dose was kept as low as reasonably achievable to obtain optimal diagnostic quality images. DICOM format image data is available electro nically for review and comparison. FINDINGS: Lung bases clear except minimal scarring. No acute findings in the liver spleen, adrenals, kidneys or pancreas. Calcified granulomata spleen. No calcified gallstones. No biliary ductal dilatation. There is a mild ileus. No free fluid or free a ir. Mild scoliosis. The bladder wall appears thickened with some mild stranding around the bladder sugges ting a cystitis. CONCLUSION: 1. Bladder wall thickening with some stranding around the bladder which may be characteristic of a cy stitis. No abscess. 2. Remote granulomatous disease. Advanced degenerative change of the spine. Bipin Moseley MD on August 31, 2017 at 22:57 Board Certified Radiologist. This report was verified electronically.
[2017-08-31] MEDS ORDERED: CIPROFLOXACIN 500 MG TAB PO ONE (23:30)
[2017-08-31] MEDS ORDERED: CIPR-9 PO (23:31)
== END 2017-09-01 00:08 | disposition home or self-care (01) ==
LOC: NEPD 15:05
DX: N30.01 Acute cystitis with hematuria (principal); F32.9 Major depressive disorder, single episode, unspecified; R10.30 Lower abdominal pain, unspecified
CPT/HCPCS: 74177; 80053; 81001; 85025; 85610; 85730; 87077; 87086; 87186; 96365; 99284; J0696; Q9967